=== PATIENT | female | born 1940 | race Two or more races ===

== ENCOUNTER 2021-03-19 11:12 | Inpatient (IN) | payer MEDICARE, OTHER ==
[~2021-03-19] VITALS: Ht 152.4 cm; Wt 75.6 kg
[2021-03-19] MEDS ORDERED: DexAMETHasone SOD PHOS 10MG/1ML VIAL INJ IV ONE (12:30)
[2021-03-19 12:37] LABS: Basophils # (auto) 0.2 10 ^3/uL (0-0.2); Basophils % (auto) 1.6 % (0.0-2.0); Eosinophils # (auto) 0 10 ^3/uL (0-0.8); Hemoglobin 12.4 g/dL (12.2-16.2); Lymphocytes # (auto) 0.5 10 ^3/uL (0.4-5.4); Lymphocytes % (auto) 3.2 % (10.0-50.0); Mean Corpuscular Hemoglobin 27.1 pg (28.0-32.0); Mean Corpuscular Hgb Conc. 32.7 g/dL (32.0-36.0); Mean Corpuscular Volume 82.8 fL (80.0-100.0); Monocytes % (auto) 6.5 % (0.0-12.0); Neutrophils # (auto) 13.3 10 ^3/uL (1.6-8.6); Neutrophils % (auto) 88.7 % (37.0-80.0); Nucleated Red Blood Cells % 0.1 %; Red Blood Cells 4.59 10^6/uL (4.0-5.20)
[2021-03-19 12:46] LABS: Albumin 2.4 g/dL (3.4-5.0); BUN/Creatinine Ratio 11.8; Bilirubin, Total 1.3 mg/dL (0.2-1.0); Calcium 8.6 mg/dL (8.5-10.1)
[2021-03-19 12:47] LABS: Lactic Acid w/Reflex 16.2 mmol/L (0.4-2.0)
[2021-03-19] MEDS ORDERED: LACTATED RINGER'S 1,000 ML IV ONE ×2 (13:15→18:00)
[2021-03-19] MEDS ORDERED: ASPirin 81 mg TAB PO ONE (13:15)
[2021-03-19] MEDS ORDERED: HEPARIN SODIUM (PORCINE) 5000 UNITS/ML 1ML VIAL IV ONE (13:15)
[2021-03-19] MEDS ORDERED: CLOPIDOGREL BISULFATE 75 MG TAB PO ONE (13:15)
[2021-03-19] MEDS: ALBUTEROL SULF HFA 90MCG INH 200DOSE IN PRN ×2 (14:20→19:30)
[2021-03-19] MEDS ORDERED: DEXTROSE (50%) 50ML SYRG IV PRN ×3 (17:15→21:45)
[2021-03-19] MEDS ORDERED: InsuLIN R (HUMAN) 100 UNITS in SODIUM CHL 0.9% 99 ML IV SCH (17:15)
[2021-03-19] MEDS ORDERED: BUDESONIDE (INHALATION) 180 MCG IH IN SCH (18:00)
[2021-03-19] MEDS ORDERED: ACCU-CHEK COMFORT CURVE STRIP VI SCH ×2 (18:00→22:00)
[2021-03-19] MEDS ORDERED: D5W/SOD CHLO 0.9% 1,000 ML IV ONE (18:45)
[2021-03-19] MEDS ORDERED: FUROSEMIDE 20 MG/2 ML VIAL IV ONE (19:30)
[2021-03-19] MEDS ORDERED: ENOXAPARIN SOD 100 MG/1 ML SYRINGE SC ONE (19:30)
[2021-03-19] MEDS ORDERED: ALBUMIN 25% 100 ML IV ONE (19:30)
[2021-03-19] MEDS ORDERED: ALBUTEROL SULF HFA 90MCG INH 200DOSE IN PRN (19:30)
[2021-03-19] MEDS ORDERED: REMDESIVIR PER PHARMACY 0 ML IV SCH (19:30)
[2021-03-19] MEDS ORDERED: ACETAMINOPHEN 500 MG TAB PO PRN (19:30)
[2021-03-19] MEDS ORDERED: FAMOTIDINE (10MG/ML) 2ML VL IV ONE (19:30)
[2021-03-19 19:45] VITALS: BP 122/80
[2021-03-19] MEDS ORDERED: METOPROLOL TARTRATE 1MG/1ML-5ML VIAL IV ONE (19:45)
[2021-03-19] MEDS: ALBUMIN 25% 100 ML IV SCH (20:40)
[2021-03-19] MEDS ORDERED: REMDESIVIR 200 MG in NS 210ml LOADING DOSE ADULT IV ONE (21:00)
[2021-03-19] MEDS ORDERED: MORPHINE SULFATE INJECTION 2 MG/ML SYRG IV PRN (21:45)
[2021-03-19] MEDS ORDERED: NITROGLYCERIN 0.4 MG SL TAB SL PRN (21:45)
[2021-03-19] MEDS ORDERED: InsuLIN REG 1unit/0.01ml Soln (100units/ml) SC SCH (22:00)
[2021-03-19] MEDS: BUDESONIDE (INHALATION) 180 MCG IH IN SCH (22:00)
[2021-03-19 22:10] LABS: Eosinophils # (auto) 0 10 ^3/uL (0-0.8); Hemoglobin 11.6 g/dL (12.2-16.2); Lymphocytes # (auto) 0.4 10 ^3/uL (0.4-5.4); Nucleated Red Blood Cells % 0.1 %; White Blood Cell 14.6 10^3/uL (4.4-10.8)
[2021-03-19 22:15] LABS: Basophils # (auto) 0.2 10 ^3/uL (0-0.2); Basophils % (auto) 1.1 % (0.0-2.0); Hematocrit 33.8 % (36.0-46.0); Mean Corpuscular Hemoglobin 26.9 pg (28.0-32.0); Mean Corpuscular Hgb Conc. 34.2 g/dL (32.0-36.0); Mean Corpuscular Volume 78.7 fL (80.0-100.0); Monocytes # (auto) 0.5 10 ^3/uL (0-1.3); Monocytes % (auto) 3.8 % (0.0-12.0); Neutrophils # (auto) 13.4 10 ^3/uL (1.6-8.6); Neutrophils % (auto) 92.1 % (37.0-80.0); Red Cell Distribution Width 14.9 % (11.8-14.3)
[2021-03-19] MEDS: ATORVASTATIN 20 MG TAB PO SCH (22:21)
[2021-03-19 22:30] LABS: Albumin 2.6 g/dL (3.4-5.0); Anion Gap 14 (5-15); Blood Urea Nitrogen 28 mg/dL (7-18); Calcium 8.4 mg/dL (8.5-10.1); Carbon Dioxide 20 mmol/L (21-32); Chloride 96 mmol/L (98-107); Glucose 202 mg/dL (74-106); Magnesium 3.2 mg/dL (1.6-2.6); Potassium 3.9 mmol/L (3.5-5.1); Sodium 130 mmol/L (136-145)
[2021-03-19] MEDS: DOXYCYCLINE 100MG/250ML 250 ML IV SCH (22:30)
[2021-03-19 22:34] LABS: Lactic Acid w/Reflex 3.9 mmol/L (0.4-2.0)
[2021-03-19 22:39] LABS: Alanine Aminotransferase 23 U/L (13-56); Alkaline Phosphatase 109 U/L (45-117); Aspartate Aminotransferase 74 U/L (15-37); BUN/Creatinine Ratio 20.1; Bilirubin, Total 1.6 mg/dL (0.2-1.0); GFR African American 47 mL/min; GFR Non-African American 39 mL/min; Total Protein 6.1 g/dL (6.4-8.2)
[2021-03-19 22:41] LABS: Thyroid Stimulating Hormone 0.38 uIU/mL (0.358-3.74)
[2021-03-19] MEDS: ACCU-CHEK COMFORT CURVE STRIP VI SCH (22:45)
[2021-03-19 23:15] LABS: CRP High Sensitivity > 19.0 mg/dL (< 0.3)
[2021-03-20] VITALS (7 sets, daily range): BP systolic 106–138; BP diastolic 53–77
[2021-03-20] MEDS ORDERED: ACCU-CHEK COMFORT CURVE STRIP VI SCH
[2021-03-20] MEDS ORDERED: METOPROLOL TARTRATE 1MG/1ML-5ML VIAL IV SCH
[2021-03-20] MEDS: ACCU-CHEK COMFORT CURVE STRIP VI SCH ×2 (00:15→01:45)
[2021-03-20] MEDS ORDERED: NITROGLYCERIN 0.4 MG SL TAB SL PRN (01:15)
[2021-03-20] MEDS ORDERED: ONDANSETRON HCL 4 MG/2 ML VIAL IV PRN (01:15)
[2021-03-20] MEDS ORDERED: TEMAZEPAM 15 MG CAP PO PRN (01:15)
[2021-03-20] MEDS ORDERED: DOCUSATE SOD 100 MG CAP PO PRN (01:15)
[2021-03-20] MEDS ORDERED: MORPHINE SULFATE INJECTION 2 MG/ML SYRG IV PRN ×2 (01:15)
[2021-03-20] MEDS ORDERED: HYDROcodone-ACET 5/325MG TAB PO PRN (01:15)
[2021-03-20] MEDS ORDERED: ALUM & MAG HYDROX-SIMETH LIQ(MAALOX) 30 ML PO PRN (01:15)
[2021-03-20 03:42] LABS: Cholesterol 69 mg/dL (< 200)
[2021-03-20 03:45] LABS: HDL Cholesterol 32 mg/dL (40-59); LDL Cholesterol 37 mg/dL (< 100); Triglycerides 39 mg/dL (< 150)
[2021-03-20] MEDS: ALBUMIN 25% 100 ML IV SCH ×2 (03:53→12:07)
[2021-03-20] MEDS ORDERED: SUCCINYLCHOLINE CHLORIDE 20 MG/ML 10ML VIAL IV ONE ×2 (03:55→04:45)
[2021-03-20] MEDS ORDERED: ETOMIDATE (2MG/ML) 20ML VIAL IV ONE ×2 (03:55→04:45)
[2021-03-20] MEDS ORDERED: MIDAZOLAM DRIP 50 mg/50mL 50 ML IV ONE (03:59)
[2021-03-20] MEDS ORDERED: PROPOFOL 100 ML IV ONE (04:25)
[2021-03-20] MEDS: PROPOFOL 100 ML IV SCH (04:44)
[2021-03-20] MEDS: MIDAZOLAM DRIP 50 mg/50mL 50 ML IV SCH (04:44)
[2021-03-20] MEDS: NOREPINEPHRINE 8 MG/250ML KIT 250 ML IV SCH (05:43)
[2021-03-20] MEDS: FUROSEMIDE 20 MG/2 ML VIAL IV SCH ×2 (06:00→18:50)
[2021-03-20] MEDS: InsuLIN REG 1unit/0.01ml Soln (100units/ml) SC SCH ×4 (06:22→18:00)
[2021-03-20] MEDS ORDERED: InsuLIN REG 1unit/0.01ml Soln (100units/ml) SC SCH (07:00)
[2021-03-20 07:33] LABS: Potassium 4.2 mmol/L (3.5-5.1)
[2021-03-20 07:50] LABS: Albumin 3.1 g/dL (3.4-5.0); BUN/Creatinine Ratio 17.3; Bilirubin, Total 4.6 mg/dL (0.2-1.0); Calcium 8.4 mg/dL (8.5-10.1); Magnesium 3.2 mg/dL (1.6-2.6); Phosphorus 4.3 mg/dL (2.5-4.90); Total Protein 6.8 g/dL (6.4-8.2)
[2021-03-20 07:54] LABS: Hematocrit 34.9 % (36.0-46.0); Hemoglobin 11.6 g/dL (12.2-16.2); Mean Corpuscular Hemoglobin 26.9 pg (28.0-32.0); Mean Corpuscular Hgb Conc. 33.3 g/dL (32.0-36.0); Mean Corpuscular Volume 80.7 fL (80.0-100.0); Red Blood Cells 4.33 10^6/uL (4.0-5.20); Red Cell Distribution Width 15.3 % (11.8-14.3); White Blood Cell 24.1 10^3/uL (4.4-10.8)
[2021-03-20 08:10] LABS: Basophils % (manual) 0 (0.0-2.0); Blast Cells 0; Eosinophils % (manual) 0 (0-7); Metamyelocytes % 0; Myelocytes % 0; Promyelocytes % 0; Reactive Lymphocytes 0
[2021-03-20 08:58] LABS: Band Neutrophils % (manual) 11; Lymphocytes % (manual) 3 (10.0-50.0); Monocytes % (manual) 9 (0-12)
[2021-03-20] MEDS: DOXYCYCLINE 100MG/250ML 250 ML IV SCH ×2 (10:45→22:28)
[2021-03-20] MEDS: DexAMETHasone SOD PHOS 10MG/1ML VIAL INJ IV SCH (10:45)
[2021-03-20] MEDS: ZINC SULFATE 220mg CAP or TAB PO SCH (10:46)
[2021-03-20] MEDS: CHOLECALCIFEROL (VITD3) 2,000 UNIT CAP/TAB PO SCH (10:46)
[2021-03-20] MEDS: ASPirin 81 mg TAB PO SCH (10:46)
[2021-03-20] MEDS: IVERMECTIN 3 MG TAB PO SCH (10:46)
[2021-03-20] MEDS: ASCORBIC ACID 1,000 MG TAB PO SCH (10:46)
[2021-03-20] MEDS ORDERED: REMDESIVIR 100mg 100 MG in SODIUM CHL 0.9% 230 ML IV SCH (15:00)
[2021-03-20] MEDS: BUDESONIDE (INHALATION) 180 MCG IH IN SCH (16:14)
[2021-03-20] MEDS: ALBUTEROL SULF 2.5 MG/0.5ML(0.5%) NEB SOLN NEB PRN (21:48)
[2021-03-20] MEDS: BUDESONIDE (INHALATION) 0.5 MG/2 ML NEB NEB SCH (21:48)
[2021-03-20] MEDS: ATORVASTATIN 20 MG TAB PO SCH (22:28)
[2021-03-20] MEDS: ENOXAPARIN SOD 60 MG/0.6 ML SYRINGE SC SCH (22:28)
[2021-03-21] MEDS: InsuLIN REG 1unit/0.01ml Soln (100units/ml) SC SCH ×4 (00:26→18:24)
[2021-03-21 02:13] VITALS: BP 120/56
[2021-03-21] MEDS: MIDAZOLAM DRIP 50 mg/50mL 50 ML IV SCH (04:42)
[2021-03-21] MEDS: PROPOFOL 100 ML IV SCH (04:43)
[2021-03-21] MEDS: FUROSEMIDE 20 MG/2 ML VIAL IV SCH ×2 (05:33→18:15)
[2021-03-21] MEDS: NOREPINEPHRINE 8 MG/250ML KIT 250 ML IV SCH (05:33)
[2021-03-21 07:04] VITALS: BP 114/53
[2021-03-21 08:41] LABS: Basophils # (auto) 0.1 10 ^3/uL (0-0.2); Basophils % (auto) 0.4 % (0.0-2.0); Eosinophils # (auto) 0 10 ^3/uL (0-0.8); Eosinophils % (auto) 0.1 % (0.0-7.0); Hematocrit 36.2 % (36.0-46.0); Hemoglobin 12.2 g/dL (12.2-16.2); Lymphocytes # (auto) 0.4 10 ^3/uL (0.4-5.4); Lymphocytes % (auto) 1.7 % (10.0-50.0); Mean Corpuscular Hemoglobin 27.1 pg (28.0-32.0); Mean Corpuscular Hgb Conc. 33.7 g/dL (32.0-36.0); Mean Corpuscular Volume 80.3 fL (80.0-100.0); Monocytes # (auto) 1.5 10 ^3/uL (0-1.3); Monocytes % (auto) 6.1 % (0.0-12.0); Neutrophils # (auto) 21.9 10 ^3/uL (1.6-8.6); Neutrophils % (auto) 91.7 % (37.0-80.0); Nucleated Red Blood Cells % 0.1 %; Red Blood Cells 4.51 10^6/uL (4.0-5.20); Red Cell Distribution Width 16.2 % (11.8-14.3)
[2021-03-21 09:45] LABS: Albumin 2.9 g/dL (3.4-5.0); Calcium 8.1 mg/dL (8.5-10.1); Magnesium 3.3 mg/dL (1.6-2.6); Potassium 4.4 mmol/L (3.5-5.1)
[2021-03-21 09:48] LABS: BUN/Creatinine Ratio 17.1; Bilirubin, Total 2.6 mg/dL (0.2-1.0); Total Protein 6.2 g/dL (6.4-8.2)
[2021-03-21] MEDS: FAMOTIDINE (10MG/ML) 2ML VL IV SCH (10:36)
[2021-03-21] MEDS: DexAMETHasone SOD PHOS 10MG/1ML VIAL INJ IV SCH (10:36)
[2021-03-21 10:45] VITALS: BP 127/60
[2021-03-21] MEDS: ZINC SULFATE 220mg CAP or TAB PO SCH (11:20)
[2021-03-21] MEDS: ASPirin 81 mg TAB PO SCH (11:20)
[2021-03-21] MEDS: IVERMECTIN 3 MG TAB PO SCH (11:20)
[2021-03-21] MEDS: ASCORBIC ACID 1,000 MG TAB PO SCH (11:21)
[2021-03-21] MEDS: CHOLECALCIFEROL (VITD3) 2,000 UNIT CAP/TAB PO SCH (11:21)
[2021-03-21] MEDS: DOXYCYCLINE 100MG/250ML 250 ML IV SCH ×2 (11:32→22:27)
[2021-03-21] MEDS: BUDESONIDE (INHALATION) 0.5 MG/2 ML NEB NEB SCH ×2 (13:55→19:13)
[2021-03-21 14:00] VITALS: BP 115/58
[2021-03-21] MEDS: ALBUTEROL SULF 2.5 MG/0.5ML(0.5%) NEB SOLN NEB PRN ×2 (14:06→19:13)
[2021-03-21] MEDS: SODIUM CHLORIDE 0.9% 1,000 ML IV SCH (14:26)
[2021-03-21 15:26] LABS: Urine Blood 3+ /uL (Negative); Urine Specific Gravity 1.014 (1.001-1.035)
[2021-03-21 18:27] VITALS: BP 125/50
[2021-03-21] MEDS: ATORVASTATIN 20 MG TAB PO SCH (22:00)
[2021-03-21] MEDS: ENOXAPARIN SOD 60 MG/0.6 ML SYRINGE SC SCH (22:30)
[2021-03-22 00:16] VITALS: BP 122/60
[2021-03-22] MEDS: SODIUM CHLORIDE 0.9% 1,000 ML IV SCH (03:28)
[2021-03-22] MEDS: PROPOFOL 100 ML IV SCH (04:35)
[2021-03-22] MEDS: MIDAZOLAM DRIP 50 mg/50mL 50 ML IV SCH (04:36)
[2021-03-22] MEDS: NOREPINEPHRINE 8 MG/250ML KIT 250 ML IV SCH (05:30)
[2021-03-22 06:10] VITALS: BP 127/61
[2021-03-22] MEDS: FUROSEMIDE 20 MG/2 ML VIAL IV SCH (06:28)
[2021-03-22] MEDS: InsuLIN REG 1unit/0.01ml Soln (100units/ml) SC SCH ×4 (06:35→17:53)
[2021-03-22 08:25] LABS: Eosinophils # (auto) 0 10 ^3/uL (0-0.8); Lymphocytes # (auto) 0.3 10 ^3/uL (0.4-5.4); Nucleated Red Blood Cells % 0.1 %
[2021-03-22 08:27] LABS: Basophils # (auto) 0.1 10 ^3/uL (0-0.2); Basophils % (auto) 0.7 % (0.0-2.0); Hematocrit 30.2 % (36.0-46.0); Hemoglobin 10.1 g/dL (12.2-16.2); Lymphocytes % (auto) 1.4 % (10.0-50.0); Mean Corpuscular Hemoglobin 26.5 pg (28.0-32.0); Mean Corpuscular Hgb Conc. 33.6 g/dL (32.0-36.0); Monocytes # (auto) 0.8 10 ^3/uL (0-1.3); Neutrophils # (auto) 17.9 10 ^3/uL (1.6-8.6); Neutrophils % (auto) 93.9 % (37.0-80.0); Red Blood Cells 3.82 10^6/uL (4.0-5.20); Red Cell Distribution Width 16.2 % (11.8-14.3)
[2021-03-22 08:41] LABS: Albumin 2.5 g/dL (3.4-5.0); Calcium 7.7 mg/dL (8.5-10.1); Magnesium 2.8 mg/dL (1.6-2.6); Potassium 4.4 mmol/L (3.5-5.1)
[2021-03-22 08:45] LABS: BUN/Creatinine Ratio 17.6; Bilirubin, Total 1.6 mg/dL (0.2-1.0); Total Protein 5.8 g/dL (6.4-8.2)
[2021-03-22] MEDS: IVERMECTIN 3 MG TAB PO SCH (10:00)
[2021-03-22] MEDS: CHOLECALCIFEROL (VITD3) 2,000 UNIT CAP/TAB PO SCH (10:00)
[2021-03-22] MEDS: ASPirin 81 mg TAB PO SCH (10:00)
[2021-03-22] MEDS: ASCORBIC ACID 1,000 MG TAB PO SCH (10:00)
[2021-03-22] MEDS: ZINC SULFATE 220mg CAP or TAB PO SCH (10:00)
[2021-03-22] MEDS: BUDESONIDE (INHALATION) 0.5 MG/2 ML NEB NEB SCH ×2 (10:06→22:00)
[2021-03-22] MEDS: ALBUTEROL SULF 2.5 MG/0.5ML(0.5%) NEB SOLN NEB PRN (10:06)
[2021-03-22] MEDS: DexAMETHasone SOD PHOS 10MG/1ML VIAL INJ IV SCH (10:20)
[2021-03-22 10:30] VITALS: BP 99/54
[2021-03-22] MEDS: DOXYCYCLINE 100MG/250ML 250 ML IV SCH (10:48)
[2021-03-22 16:00] VITALS: BP 99/56
[2021-03-22 17:30] VITALS: BP 106/56
[2021-03-22 22:25] VITALS: BP 108/60
[2021-03-22] MEDS: BUMETANIDE 2.5mg/10ml (0.25 mg/ml) INJ IV SCH (22:30)
[2021-03-22] MEDS: ENOXAPARIN SOD 60 MG/0.6 ML SYRINGE SC SCH (22:30)
[2021-03-22] MEDS: ATORVASTATIN 20 MG TAB PO SCH (23:29)
[2021-03-23] MEDS: PROPOFOL 100 ML IV SCH
[2021-03-23] MEDS: DOXYCYCLINE 100MG/250ML 250 ML IV SCH ×3 (00:08→22:45)
[2021-03-23] MEDS: InsuLIN REG 1unit/0.01ml Soln (100units/ml) SC SCH ×4 (00:33→22:58)
[2021-03-23 02:05] VITALS: BP 116/58
[2021-03-23] MEDS: MIDAZOLAM DRIP 50 mg/50mL 50 ML IV SCH (04:15)
[2021-03-23 05:11] LABS: Basophils # (auto) 0.1 10 ^3/uL (0-0.2); Eosinophils # (auto) 0.4 10 ^3/uL (0-0.8); Red Blood Cells 3.72 10^6/uL (4.0-5.20); White Blood Cell 18.8 10^3/uL (4.4-10.8)
[2021-03-23 05:13] LABS: Basophils % (auto) 0.6 % (0.0-2.0); Eosinophils % (auto) 2.2 % (0.0-7.0); Hematocrit 29.1 % (36.0-46.0); Hemoglobin 10.1 g/dL (12.2-16.2); Lymphocytes # (auto) 0.4 10 ^3/uL (0.4-5.4); Lymphocytes % (auto) 1.9 % (10.0-50.0); Mean Corpuscular Hemoglobin 27.1 pg (28.0-32.0); Mean Corpuscular Hgb Conc. 34.6 g/dL (32.0-36.0); Mean Corpuscular Volume 78.2 fL (80.0-100.0); Monocytes # (auto) 0.7 10 ^3/uL (0-1.3); Monocytes % (auto) 3.5 % (0.0-12.0); Neutrophils # (auto) 17.2 10 ^3/uL (1.6-8.6); Neutrophils % (auto) 91.8 % (37.0-80.0); Nucleated Red Blood Cells % 0.1 %; Red Cell Distribution Width 15.8 % (11.8-14.3)
[2021-03-23 07:28] VITALS: BP 120/55
[2021-03-23] MEDS: NOREPINEPHRINE 8 MG/250ML KIT 250 ML IV SCH (07:45)
[2021-03-23] MEDS: ASPirin 81 mg TAB PO SCH (09:06)
[2021-03-23] MEDS: IVERMECTIN 3 MG TAB PO SCH (09:07)
[2021-03-23] MEDS: ASCORBIC ACID 1,000 MG TAB PO SCH (09:07)
[2021-03-23] MEDS: CHOLECALCIFEROL (VITD3) 2,000 UNIT CAP/TAB PO SCH (09:07)
[2021-03-23] MEDS: ZINC SULFATE 220mg CAP or TAB PO SCH (09:07)
[2021-03-23] MEDS: DexAMETHasone SOD PHOS 10MG/1ML VIAL INJ IV SCH (09:52)
[2021-03-23] MEDS: BUMETANIDE 2.5mg/10ml (0.25 mg/ml) INJ IV SCH ×2 (09:52→23:06)
[2021-03-23] MEDS: FAMOTIDINE (10MG/ML) 2ML VL IV SCH (09:52)
[2021-03-23] MEDS ORDERED: HEPARIN SODIUM (PORCINE) 5000 UNITS/ML 1ML VIAL ONE (12:19)
[2021-03-23 12:41] VITALS: BP 124/69
[2021-03-23] MEDS ORDERED: HEPARIN 1,000 UNITS/ml 1ML VIAL IV ONE (13:30)
[2021-03-23] MEDS ORDERED: SODIUM CHL 0.9% 1000 ML BAG XX ONE (15:30)
[2021-03-23 18:15] VITALS: BP 119/67
[2021-03-23] MEDS: BUDESONIDE (INHALATION) 0.5 MG/2 ML NEB NEB SCH (19:11)
[2021-03-23] MEDS: ALBUTEROL SULF 2.5 MG/0.5ML(0.5%) NEB SOLN NEB PRN (19:12)
[2021-03-23] MEDS ORDERED: ALBUMIN 25% 100 ML IV ONE (19:15)
[2021-03-23 22:45] VITALS: BP 131/67
[2021-03-23] MEDS: ATORVASTATIN 20 MG TAB PO SCH ×2 (23:06→23:24)
[2021-03-23] MEDS: ENOXAPARIN SOD 60 MG/0.6 ML SYRINGE SC SCH (23:06)
[2021-03-24] MEDS: PROPOFOL 100 ML IV SCH ×2 (01:05→04:30)
[2021-03-24 02:14] LABS: Albumin 3.5 g/dL (3.4-5.0); BUN/Creatinine Ratio 16.1; Calcium 8.3 mg/dL (8.5-10.1); Potassium 4.6 mmol/L (3.5-5.1)
[2021-03-24 02:16] LABS: Bilirubin, Total 1.7 mg/dL (0.2-1.0); Total Protein 6.8 g/dL (6.4-8.2)
[2021-03-24 02:50] VITALS: BP 132/64
[2021-03-24] MEDS: MIDAZOLAM DRIP 50 mg/50mL 50 ML IV SCH (04:22)
[2021-03-24] MEDS: NOREPINEPHRINE 8 MG/250ML KIT 250 ML IV SCH ×2 (05:30→23:45)
[2021-03-24 06:04] VITALS: BP 140/69
[2021-03-24] MEDS: InsuLIN REG 1unit/0.01ml Soln (100units/ml) SC SCH ×4 (07:00→17:51)
[2021-03-24] MEDS: BUDESONIDE (INHALATION) 0.5 MG/2 ML NEB NEB SCH ×2 (08:46→17:37)
[2021-03-24] MEDS: ALBUTEROL SULF 2.5 MG/0.5ML(0.5%) NEB SOLN NEB PRN ×2 (08:46→17:37)
[2021-03-24 08:53] LABS: Basophils # (auto) 0.2 10 ^3/uL (0-0.2); Basophils % (auto) 1.1 % (0.0-2.0); Eosinophils # (auto) 0 10 ^3/uL (0-0.8); Hematocrit 29.8 % (36.0-46.0); Lymphocytes # (auto) 0.3 10 ^3/uL (0.4-5.4); Lymphocytes % (auto) 1.8 % (10.0-50.0); Mean Corpuscular Hemoglobin 26.1 pg (28.0-32.0); Mean Corpuscular Hgb Conc. 33.4 g/dL (32.0-36.0); Mean Corpuscular Volume 78.2 fL (80.0-100.0); Monocytes # (auto) 1.3 10 ^3/uL (0-1.3); Neutrophils # (auto) 14.4 10 ^3/uL (1.6-8.6); Neutrophils % (auto) 89.1 % (37.0-80.0); Nucleated Red Blood Cells % 0.3 %; Red Blood Cells 3.82 10^6/uL (4.0-5.20); Red Cell Distribution Width 15.4 % (11.8-14.3); White Blood Cell 16.2 10^3/uL (4.4-10.8)
[2021-03-24 09:01] LABS: Calcium 8.3 mg/dL (8.5-10.1); Potassium 4.6 mmol/L (3.5-5.1)
[2021-03-24 09:53] VITALS: BP 142/75
[2021-03-24] MEDS: ASCORBIC ACID 1,000 MG TAB PO SCH (10:00)
[2021-03-24] MEDS: ASPirin 81 mg TAB PO SCH (10:00)
[2021-03-24] MEDS: IVERMECTIN 3 MG TAB PO SCH (10:00)
[2021-03-24] MEDS: CHOLECALCIFEROL (VITD3) 2,000 UNIT CAP/TAB PO SCH (10:00)
[2021-03-24] MEDS: ZINC SULFATE 220mg CAP or TAB PO SCH (10:00)
[2021-03-24] MEDS: BUMETANIDE 2.5mg/10ml (0.25 mg/ml) INJ IV SCH ×2 (10:37→22:31)
[2021-03-24] MEDS: DOXYCYCLINE 100MG/250ML 250 ML IV SCH (10:38)
[2021-03-24] MEDS: DexAMETHasone SOD PHOS 10MG/1ML VIAL INJ IV SCH (10:38)
[2021-03-24 13:57] VITALS: BP 133/62
[2021-03-24 17:37] VITALS: BP 124/63
[2021-03-24 21:55] VITALS: BP 133/62
[2021-03-24] MEDS: ENOXAPARIN SOD 60 MG/0.6 ML SYRINGE SC SCH (22:48)
[2021-03-24] MEDS: ATORVASTATIN 20 MG TAB PO SCH (22:48)
[2021-03-24] MEDS ORDERED: TEMAZEPAM 15 MG CAP PO PRN (23:45)
[2021-03-24] MEDS ORDERED: NITROGLYCERIN 0.4 MG SL TAB SL PRN ×2 (23:45)
[2021-03-24] MEDS ORDERED: MIDAZOLAM DRIP 50 mg/50mL 50 ML IV SCH (23:45)
[2021-03-24] MEDS ORDERED: ONDANSETRON HCL 4 MG/2 ML VIAL IV PRN (23:45)
[2021-03-24] MEDS ORDERED: HYDROcodone-ACET 5/325MG TAB PO PRN (23:45)
[2021-03-24] MEDS ORDERED: MORPHINE SULFATE INJECTION 2 MG/ML SYRG IV PRN ×3 (23:45)
[2021-03-24] MEDS ORDERED: DEXTROSE (50%) 50ML SYRG IV PRN (23:45)
[2021-03-24] MEDS ORDERED: ACETAMINOPHEN 500 MG TAB PO PRN (23:45)
[2021-03-24] MEDS ORDERED: DOCUSATE SOD 100 MG CAP PO PRN (23:45)
[2021-03-24] MEDS ORDERED: ALUM & MAG HYDROX-SIMETH LIQ(MAALOX) 30 ML PO PRN (23:45)
[2021-03-25] VITALS (68 sets, daily range): BP systolic 97–159; BP diastolic 53–75
[2021-03-25 05:07] LABS: Eosinophils # (auto) 0 10 ^3/uL (0-0.8); Lymphocytes # (auto) 0.2 10 ^3/uL (0.4-5.4)
[2021-03-25 05:10] LABS: Basophils # (auto) 0 10 ^3/uL (0-0.2); Basophils % (auto) 0.2 % (0.0-2.0); Hematocrit 26.5 % (36.0-46.0); Lymphocytes % (auto) 1.9 % (10.0-50.0); Mean Corpuscular Hemoglobin 26.6 pg (28.0-32.0); Mean Corpuscular Hgb Conc. 33.9 g/dL (32.0-36.0); Mean Corpuscular Volume 78.7 fL (80.0-100.0); Monocytes # (auto) 0.7 10 ^3/uL (0-1.3); Monocytes % (auto) 5.9 % (0.0-12.0); Neutrophils # (auto) 11.1 10 ^3/uL (1.6-8.6); Nucleated Red Blood Cells % 0.2 %; Red Blood Cells 3.37 10^6/uL (4.0-5.20); Red Cell Distribution Width 15.2 % (11.8-14.3)
[2021-03-25 05:36] LABS: BUN/Creatinine Ratio 18.8; Magnesium 2.9 mg/dL (1.6-2.6); Potassium 5.3 mmol/L (3.5-5.1)
[2021-03-25] MEDS: InsuLIN REG 1unit/0.01ml Soln (100units/ml) SC SCH ×4 (06:00→18:00)
[2021-03-25] MEDS: ALBUTEROL SULF 2.5 MG/0.5ML(0.5%) NEB SOLN NEB PRN (06:04)
[2021-03-25] MEDS ORDERED: SODIUM CHL 0.9% 1000 ML BAG XX ONE ×3 (07:00→13:45)
[2021-03-25] MEDS: BUDESONIDE (INHALATION) 0.5 MG/2 ML NEB NEB SCH ×2 (09:57→22:05)
[2021-03-25] MEDS: ASCORBIC ACID 1,000 MG TAB PO SCH (10:00)
[2021-03-25] MEDS: ASPirin 81 mg TAB PO SCH (10:00)
[2021-03-25] MEDS: ZINC SULFATE 220mg CAP or TAB PO SCH (10:00)
[2021-03-25] MEDS: BUMETANIDE 2.5mg/10ml (0.25 mg/ml) INJ IV SCH ×2 (13:47→22:04)
[2021-03-25] MEDS: FAMOTIDINE (10MG/ML) 2ML VL IV SCH (13:48)
[2021-03-25] MEDS: DexAMETHasone SOD PHOS 10MG/1ML VIAL INJ IV SCH (13:48)
[2021-03-25] MEDS: CHOLECALCIFEROL (VITD3) 2,000 UNIT CAP/TAB PO SCH (13:49)
[2021-03-25] MEDS ORDERED: TPN PER PHARMACY 0 ML IV SCH (14:30)
[2021-03-25] MEDS: ACCU-CHEK COMFORT CURVE STRIP VI SCH (18:16)
[2021-03-25] MEDS ORDERED: AMINO ACID INFUSION IN D10W 1,000 ML IV NR (20:00)
[2021-03-25] MEDS: ATORVASTATIN 20 MG TAB PO SCH ×2 (22:00→22:05)
[2021-03-25] MEDS ORDERED: ENOXAPARIN SOD 60 MG/0.6 ML SYRINGE SC SCH (22:00)
[2021-03-25] MEDS: ENOXAPARIN SOD 40 MG/0.4 ML SYRINGE SC SCH (22:05)
[2021-03-25] MEDS: NOREPINEPHRINE 8 MG/250ML KIT 250 ML IV SCH (23:45)
[2021-03-25] MEDS: PROPOFOL 100 ML IV SCH (23:45)
[2021-03-26] VITALS (99 sets, daily range): BP systolic 87–208; BP diastolic 45–82
[2021-03-26 02:50] LABS: Basophils # (auto) 0 10 ^3/uL (0-0.2); Eosinophils # (auto) 0.1 10 ^3/uL (0-0.8); Hematocrit 27.7 % (36.0-46.0); Hemoglobin 9.2 g/dL (12.2-16.2); Lymphocytes # (auto) 0.3 10 ^3/uL (0.4-5.4); Lymphocytes % (auto) 2.1 % (10.0-50.0); Mean Corpuscular Hemoglobin 25.7 pg (28.0-32.0); Mean Corpuscular Hgb Conc. 33.2 g/dL (32.0-36.0); Mean Corpuscular Volume 77.4 fL (80.0-100.0); Monocytes # (auto) 0.2 10 ^3/uL (0-1.3); Monocytes % (auto) 1.5 % (0.0-12.0); Neutrophils # (auto) 13.6 10 ^3/uL (1.6-8.6); Neutrophils % (auto) 95.4 % (37.0-80.0); Nucleated Red Blood Cells % 0.3 %; Red Blood Cells 3.58 10^6/uL (4.0-5.20); Red Cell Distribution Width 15.4 % (11.8-14.3); White Blood Cell 14.2 10^3/uL (4.4-10.8)
[2021-03-26 03:02] LABS: Albumin 2.7 g/dL (3.4-5.0); BUN/Creatinine Ratio 18.1; Bilirubin, Total 1.1 mg/dL (0.2-1.0); Calcium 8.1 mg/dL (8.5-10.1); Magnesium 2.6 mg/dL (1.6-2.6); Phosphorus 6.9 mg/dL (2.5-4.90); Total Protein 5.8 g/dL (6.4-8.2)
[2021-03-26] MEDS: ACCU-CHEK COMFORT CURVE STRIP VI SCH ×4 (05:37→19:24)
[2021-03-26] MEDS: InsuLIN REG 1unit/0.01ml Soln (100units/ml) SC SCH ×4 (05:37→19:23)
[2021-03-26] MEDS: ALBUTEROL SULF 2.5 MG/0.5ML(0.5%) NEB SOLN NEB PRN ×2 (06:13→17:55)
[2021-03-26] MEDS: BUDESONIDE (INHALATION) 0.5 MG/2 ML NEB NEB SCH ×2 (06:14→17:55)
[2021-03-26] MEDS: DexAMETHasone SOD PHOS 10MG/1ML VIAL INJ IV SCH (09:30)
[2021-03-26] MEDS: ZINC SULFATE 220mg CAP or TAB PO SCH (09:30)
[2021-03-26] MEDS: BUMETANIDE 2.5mg/10ml (0.25 mg/ml) INJ IV SCH ×2 (09:30→21:39)
[2021-03-26] MEDS: ASPirin 81 mg TAB PO SCH (09:30)
[2021-03-26] MEDS: CHOLECALCIFEROL (VITD3) 2,000 UNIT CAP/TAB PO SCH (09:30)
[2021-03-26] MEDS: ASCORBIC ACID 1,000 MG TAB PO SCH (09:30)
[2021-03-26 11:02] LABS: Hepatitis A Ab IgM Negative
[2021-03-26 11:12] LABS: Hepatitis B Core IgM Negative
[2021-03-26 11:19] LABS: Hepatitis C Antibody Negative (Negative)
[2021-03-26] MEDS: hydrALAZINE HCL 20 MG/ML VL IV PRN (14:05)
[2021-03-26] MEDS: PROPOFOL 100 ML IV SCH (16:00)
[2021-03-26] MEDS: ENOXAPARIN SOD 40 MG/0.4 ML SYRINGE SC SCH (21:39)
[2021-03-26] MEDS: ATORVASTATIN 20 MG TAB PO SCH (21:39)
[2021-03-27] VITALS (100 sets, daily range): BP systolic 82–172; BP diastolic 41–77
[2021-03-27] MEDS: ACCU-CHEK COMFORT CURVE STRIP VI SCH ×4 (05:37→17:36)
[2021-03-27] MEDS: InsuLIN REG 1unit/0.01ml Soln (100units/ml) SC SCH ×4 (05:37→17:36)
[2021-03-27 05:59] LABS: Basophils # (auto) 0 10 ^3/uL (0-0.2); Eosinophils # (auto) 0 10 ^3/uL (0-0.8); Hemoglobin 10.1 g/dL (12.2-16.2); Mean Corpuscular Hemoglobin 26.4 pg (28.0-32.0); Mean Corpuscular Hgb Conc. 33.7 g/dL (32.0-36.0); White Blood Cell 18.2 10^3/uL (4.4-10.8)
[2021-03-27 06:02] LABS: Basophils % (auto) 0.2 % (0.0-2.0); Hematocrit 29.8 % (36.0-46.0); Lymphocytes # (auto) 0.5 10 ^3/uL (0.4-5.4); Lymphocytes % (auto) 2.5 % (10.0-50.0); Mean Corpuscular Volume 78.4 fL (80.0-100.0); Monocytes # (auto) 0.8 10 ^3/uL (0-1.3); Monocytes % (auto) 4.6 % (0.0-12.0); Neutrophils # (auto) 16.9 10 ^3/uL (1.6-8.6); Neutrophils % (auto) 92.7 % (37.0-80.0); Nucleated Red Blood Cells % 0.1 %; Red Cell Distribution Width 15.9 % (11.8-14.3)
[2021-03-27 06:38] LABS: BUN/Creatinine Ratio 22.2; Calcium 8.4 mg/dL (8.5-10.1); Potassium 5.4 mmol/L (3.5-5.1)
[2021-03-27] MEDS: PROPOFOL 100 ML IV SCH (06:42)
[2021-03-27] MEDS ORDERED: SODIUM CHL 0.9% 1000 ML BAG XX ONE (07:00)
[2021-03-27] MEDS: ZINC SULFATE 220mg CAP or TAB PO SCH (09:25)
[2021-03-27] MEDS: FAMOTIDINE (10MG/ML) 2ML VL IV SCH (09:25)
[2021-03-27] MEDS: ASPirin 81 mg TAB PO SCH (09:25)
[2021-03-27] MEDS: DexAMETHasone SOD PHOS 10MG/1ML VIAL INJ IV SCH (09:25)
[2021-03-27] MEDS: BUMETANIDE 2.5mg/10ml (0.25 mg/ml) INJ IV SCH ×2 (09:25→22:22)
[2021-03-27] MEDS: ASCORBIC ACID 1,000 MG TAB PO SCH (09:26)
[2021-03-27] MEDS: CHOLECALCIFEROL (VITD3) 2,000 UNIT CAP/TAB PO SCH (09:26)
[2021-03-27] MEDS: ENOXAPARIN SOD 40 MG/0.4 ML SYRINGE SC SCH (21:07)
[2021-03-27] MEDS: ATORVASTATIN 20 MG TAB PO SCH (21:07)
[2021-03-27] MEDS: BUDESONIDE (INHALATION) 0.5 MG/2 ML NEB NEB SCH (22:54)
[2021-03-27] MEDS: ALBUTEROL SULF 2.5 MG/0.5ML(0.5%) NEB SOLN NEB PRN (22:55)
[2021-03-27] MEDS: NOREPINEPHRINE 8 MG/250ML KIT 250 ML IV SCH (23:45)
[2021-03-28] VITALS (97 sets, daily range): BP systolic 119–207; BP diastolic 54–92
[2021-03-28] MEDS: BUDESONIDE (INHALATION) 0.5 MG/2 ML NEB NEB SCH ×3 (02:56→21:25)
[2021-03-28 04:21] LABS: Basophils # (auto) 0 10 ^3/uL (0-0.2); Basophils % (auto) 0.2 % (0.0-2.0); Eosinophils # (auto) 0 10 ^3/uL (0-0.8); Eosinophils % (auto) 0.1 % (0.0-7.0); Monocytes # (auto) 0.7 10 ^3/uL (0-1.3); Nucleated Red Blood Cells % 0.1 %; Red Cell Distribution Width 15.3 % (11.8-14.3)
[2021-03-28 04:23] LABS: Hematocrit 31.2 % (36.0-46.0); Hemoglobin 10.7 g/dL (12.2-16.2); Lymphocytes # (auto) 0.4 10 ^3/uL (0.4-5.4); Lymphocytes % (auto) 2.2 % (10.0-50.0); Mean Corpuscular Hemoglobin 26.5 pg (28.0-32.0); Mean Corpuscular Hgb Conc. 34.3 g/dL (32.0-36.0); Mean Corpuscular Volume 77.3 fL (80.0-100.0); Monocytes % (auto) 3.9 % (0.0-12.0); Neutrophils % (auto) 93.6 % (37.0-80.0); Red Blood Cells 4.04 10^6/uL (4.0-5.20); White Blood Cell 17.1 10^3/uL (4.4-10.8)
[2021-03-28 04:34] LABS: Calcium 8.5 mg/dL (8.5-10.1); Potassium 4.8 mmol/L (3.5-5.1)
[2021-03-28 04:36] LABS: BUN/Creatinine Ratio 14.3
[2021-03-28] MEDS: InsuLIN REG 1unit/0.01ml Soln (100units/ml) SC SCH ×4 (06:00→17:35)
[2021-03-28] MEDS: ALBUTEROL SULF 2.5 MG/0.5ML(0.5%) NEB SOLN NEB PRN ×2 (06:05→21:25)
[2021-03-28] MEDS: ACCU-CHEK COMFORT CURVE STRIP VI SCH ×4 (06:08→17:35)
[2021-03-28] MEDS: BUMETANIDE 2.5mg/10ml (0.25 mg/ml) INJ IV SCH ×2 (09:45→21:28)
[2021-03-28] MEDS: DexAMETHasone SOD PHOS 10MG/1ML VIAL INJ IV SCH (09:45)
[2021-03-28] MEDS: ASPirin 81 mg TAB PO SCH (09:46)
[2021-03-28] MEDS: CHOLECALCIFEROL (VITD3) 2,000 UNIT CAP/TAB PO SCH (09:46)
[2021-03-28] MEDS: ZINC SULFATE 220mg CAP or TAB PO SCH (09:46)
[2021-03-28] MEDS: ASCORBIC ACID 1,000 MG TAB PO SCH (09:46)
[2021-03-28] MEDS ORDERED: TPN PER PHARMACY 0 ML IV SCH (12:30)
[2021-03-28 13:33] LABS: Magnesium 2.6 mg/dL (1.6-2.6); Phosphorus 7.4 mg/dL (2.5-4.90)
[2021-03-28 13:38] LABS: Pre Albumin 21.8 mg/dL (20.0-40.0)
[2021-03-28] MEDS: ATORVASTATIN 20 MG TAB PO SCH (19:58)
[2021-03-28] MEDS ORDERED: AMINO ACID INFUSION IN D10W 1,000 ML IV NR (20:00)
[2021-03-28] MEDS: PROPOFOL 100 ML IV SCH (20:15)
[2021-03-28] MEDS: ENOXAPARIN SOD 40 MG/0.4 ML SYRINGE SC SCH (21:27)
[2021-03-28] MEDS: hydrALAZINE HCL 20 MG/ML VL IV PRN (23:06)
[2021-03-28] MEDS: NOREPINEPHRINE 8 MG/250ML KIT 250 ML IV SCH (23:45)
[2021-03-29] VITALS (96 sets, daily range): BP systolic 86–203; BP diastolic 40–91
[2021-03-29] MEDS: ACCU-CHEK COMFORT CURVE STRIP VI SCH ×5 (00:13→23:43)
[2021-03-29] MEDS: InsuLIN REG 1unit/0.01ml Soln (100units/ml) SC SCH ×5 (05:54→23:43)
[2021-03-29 05:55] LABS: Albumin 2.4 g/dL (3.4-5.0); Calcium 8.7 mg/dL (8.5-10.1); Magnesium 3.5 mg/dL (1.6-2.6); Potassium 5.1 mmol/L (3.5-5.1)
[2021-03-29 05:59] LABS: BUN/Creatinine Ratio 22.3; Bilirubin, Total 1.2 mg/dL (0.2-1.0); Phosphorus 8.2 mg/dL (2.5-4.90)
[2021-03-29] MEDS: DexAMETHasone SOD PHOS 10MG/1ML VIAL INJ IV SCH (09:12)
[2021-03-29] MEDS: FAMOTIDINE (10MG/ML) 2ML VL IV SCH (09:12)
[2021-03-29] MEDS: BUMETANIDE 2.5mg/10ml (0.25 mg/ml) INJ IV SCH ×2 (09:12→23:42)
[2021-03-29] MEDS: ASCORBIC ACID 1,000 MG TAB PO SCH (09:12)
[2021-03-29] MEDS: CHOLECALCIFEROL (VITD3) 2,000 UNIT CAP/TAB PO SCH (09:12)
[2021-03-29] MEDS: ASPirin 81 mg TAB PO SCH (09:13)
[2021-03-29] MEDS: ZINC SULFATE 220mg CAP or TAB PO SCH (09:13)
[2021-03-29] MEDS: PROPOFOL 100 ML IV SCH (10:00)
[2021-03-29] MEDS ORDERED: DEXTROSE (50%) 50ML SYRG IV SCH (12:00)
[2021-03-29] MEDS: BUDESONIDE (INHALATION) 0.5 MG/2 ML NEB NEB SCH (19:22)
[2021-03-29] MEDS: ALBUTEROL SULF 2.5 MG/0.5ML(0.5%) NEB SOLN NEB PRN (19:22)
[2021-03-29] MEDS ORDERED: TPN PER PHARMACY IV NR ×5 (20:00)
[2021-03-29] MEDS: ATORVASTATIN 20 MG TAB PO SCH (22:00)
[2021-03-29] MEDS: ENOXAPARIN SOD 40 MG/0.4 ML SYRINGE SC SCH (23:41)
[2021-03-29] MEDS: NOREPINEPHRINE 8 MG/250ML KIT 250 ML IV SCH (23:45)
[2021-03-30] VITALS (59 sets, daily range): BP systolic 76–153; BP diastolic 35–80
[2021-03-30] MEDS: ACCU-CHEK COMFORT CURVE STRIP VI SCH ×3 (06:00→18:00)
[2021-03-30] MEDS: ALBUTEROL SULF 2.5 MG/0.5ML(0.5%) NEB SOLN NEB PRN ×2 (06:35→21:46)
[2021-03-30] MEDS: BUDESONIDE (INHALATION) 0.5 MG/2 ML NEB NEB SCH ×2 (06:35→21:46)
[2021-03-30] MEDS: InsuLIN REG 1unit/0.01ml Soln (100units/ml) SC SCH ×3 (07:00→18:00)
[2021-03-30] MEDS ORDERED: SODIUM CHL 0.9% 1000 ML BAG XX ONE (07:00)
[2021-03-30] MEDS: ZINC SULFATE 220mg CAP or TAB PO SCH (10:00)
[2021-03-30] MEDS: ASPirin 81 mg TAB PO SCH (10:00)
[2021-03-30] MEDS: BUMETANIDE 2.5mg/10ml (0.25 mg/ml) INJ IV SCH ×2 (10:00→21:57)
[2021-03-30] MEDS: CHOLECALCIFEROL (VITD3) 2,000 UNIT CAP/TAB PO SCH (10:00)
[2021-03-30] MEDS: ASCORBIC ACID 1,000 MG TAB PO SCH (10:00)
[2021-03-30 15:14] LABS: Albumin 2.1 g/dL (3.4-5.0); Calcium 8.2 mg/dL (8.5-10.1); Magnesium 3.5 mg/dL (1.6-2.6)
[2021-03-30 15:17] LABS: BUN/Creatinine Ratio 23.3; Bilirubin, Total 0.9 mg/dL (0.2-1.0); Phosphorus 6.5 mg/dL (2.5-4.90); Total Protein 5.8 g/dL (6.4-8.2)
[2021-03-30 15:33] LABS: Potassium 5.6 mmol/L (3.5-5.1)
[2021-03-30] MEDS: PROPOFOL 100 ML IV SCH (16:21)
[2021-03-30] MEDS: DexAMETHasone SOD PHOS 10MG/1ML VIAL INJ IV SCH (17:00)
[2021-03-30] MEDS: TPN PER PHARMACY IV NR ×3 (20:00)
[2021-03-30] MEDS: ENOXAPARIN SOD 40 MG/0.4 ML SYRINGE SC SCH (21:56)
[2021-03-30] MEDS: ATORVASTATIN 20 MG TAB PO SCH (21:56)
[2021-03-30] MEDS: NOREPINEPHRINE 8 MG/250ML KIT 250 ML IV SCH (23:45)
[2021-03-31] VITALS (89 sets, daily range): BP systolic 90–187; BP diastolic 41–75
[2021-03-31] MEDS: ACCU-CHEK COMFORT CURVE STRIP VI SCH ×4 (06:00→18:44)
[2021-03-31] MEDS: InsuLIN REG 1unit/0.01ml Soln (100units/ml) SC SCH ×4 (07:00→18:44)
[2021-03-31] MEDS: ZINC SULFATE 220mg CAP or TAB PO SCH (10:00)
[2021-03-31] MEDS: ASCORBIC ACID 1,000 MG TAB PO SCH (10:00)
[2021-03-31] MEDS: CHOLECALCIFEROL (VITD3) 2,000 UNIT CAP/TAB PO SCH (10:00)
[2021-03-31] MEDS: ASPirin 81 mg TAB PO SCH (10:00)
[2021-03-31] MEDS: ALBUTEROL SULF 2.5 MG/0.5ML(0.5%) NEB SOLN NEB PRN ×2 (10:31→20:14)
[2021-03-31] MEDS: hydrALAZINE HCL 20 MG/ML VL IV PRN (10:31)
[2021-03-31] MEDS: BUDESONIDE (INHALATION) 0.5 MG/2 ML NEB NEB SCH ×2 (10:31→20:14)
[2021-03-31] MEDS: DexAMETHasone SOD PHOS 10MG/1ML VIAL INJ IV SCH (10:32)
[2021-03-31] MEDS: BUMETANIDE 2.5mg/10ml (0.25 mg/ml) INJ IV SCH ×2 (10:32→22:00)
[2021-03-31 11:14] LABS: Hemoglobin 11.9 g/dL (12.2-16.2); Mean Corpuscular Hemoglobin 26.1 pg (28.0-32.0); Mean Corpuscular Hgb Conc. 32.3 g/dL (32.0-36.0); Red Blood Cells 4.56 10^6/uL (4.0-5.20); White Blood Cell 27.7 10^3/uL (4.4-10.8)
[2021-03-31 11:15] LABS: Basophils % (manual) 0 (0.0-2.0); Blast Cells 0; Metamyelocytes % 0; Myelocytes % 0; Promyelocytes % 0; Reactive Lymphocytes 0
[2021-03-31 11:29] LABS: Albumin 2.1 g/dL (3.4-5.0); Calcium 7.4 mg/dL (8.5-10.1); Potassium 5.4 mmol/L (3.5-5.1)
[2021-03-31 11:34] LABS: Bilirubin, Total 0.9 mg/dL (0.2-1.0); Phosphorus 6.4 mg/dL (2.5-4.90); Total Protein 5.9 g/dL (6.4-8.2)
[2021-03-31 11:35] LABS: Band Neutrophils % (manual) 1; Eosinophils % (manual) 1 (0-7); Lymphocytes % (manual) 5 (10.0-50.0); Monocytes % (manual) 2 (0-12)
[2021-03-31] MEDS: FAMOTIDINE (10MG/ML) 2ML VL IV SCH (13:54)
[2021-03-31] MEDS ORDERED: VANCOMYCIN PER PHARMACY 0 MG IV SCH (14:30)
[2021-03-31] MEDS ORDERED: MEROPENEM 1GM IVPB 100 ML IV SCH (14:45)
[2021-03-31] MEDS ORDERED: VANCOMYCIN 1GM/250ML 250 ML IV ONE (15:00)
[2021-03-31] MEDS: PROPOFOL 100 ML IV SCH (17:56)
[2021-03-31] MEDS: MEROPENEM 500MG IVPB 50 ML IV SCH (19:00)
[2021-03-31] MEDS: TPN PER PHARMACY IV NR ×8 (19:50→22:40)
[2021-03-31] MEDS: ATORVASTATIN 20 MG TAB PO SCH (22:00)
[2021-03-31] MEDS: ENOXAPARIN SOD 40 MG/0.4 ML SYRINGE SC SCH (22:00)
[2021-03-31] MEDS: NOREPINEPHRINE 8 MG/250ML KIT 250 ML IV SCH (23:45)
[2021-04-01] VITALS (123 sets, daily range): BP systolic 76–162; BP diastolic 37–72
[2021-04-01] MEDS: InsuLIN REG 1unit/0.01ml Soln (100units/ml) SC SCH ×4 (01:00→18:27)
[2021-04-01] MEDS: MEROPENEM 500MG IVPB 50 ML IV SCH ×2 (04:00→18:25)
[2021-04-01 04:59] LABS: Hemoglobin 9.3 g/dL (12.2-16.2)
[2021-04-01 05:03] LABS: Hematocrit 27.9 % (36.0-46.0); Mean Corpuscular Hemoglobin 26.4 pg (28.0-32.0); Mean Corpuscular Hgb Conc. 33.2 g/dL (32.0-36.0); Mean Corpuscular Volume 79.4 fL (80.0-100.0); Red Blood Cells 3.51 10^6/uL (4.0-5.20); Red Cell Distribution Width 15.7 % (11.8-14.3); White Blood Cell 28.4 10^3/uL (4.4-10.8)
[2021-04-01 05:21] LABS: Basophils % (manual) 0 (0.0-2.0); Blast Cells 0; Eosinophils % (manual) 0 (0-7); Metamyelocytes % 0; Myelocytes % 0; Promyelocytes % 0; Reactive Lymphocytes 0
[2021-04-01 05:23] LABS: Albumin 1.9 g/dL (3.4-5.0); BUN/Creatinine Ratio 27.3; Calcium 8.7 mg/dL (8.5-10.1); Magnesium 2.2 mg/dL (1.6-2.6); Potassium 4.6 mmol/L (3.5-5.1)
[2021-04-01 05:26] LABS: Bilirubin, Total 0.8 mg/dL (0.2-1.0); Phosphorus 5.8 mg/dL (2.5-4.90); Total Protein 5.5 g/dL (6.4-8.2)
[2021-04-01] MEDS: ACCU-CHEK COMFORT CURVE STRIP VI SCH ×4 (06:00→18:27)
[2021-04-01] MEDS: PROPOFOL 100 ML IV SCH ×3 (07:00→23:00)
[2021-04-01] MEDS ORDERED: SODIUM CHL 0.9% 1000 ML BAG XX ONE (07:00)
[2021-04-01 07:13] LABS: Band Neutrophils % (manual) 6; Lymphocytes % (manual) 1 (10.0-50.0); Monocytes % (manual) 4 (0-12)
[2021-04-01] MEDS ORDERED: ALBUMIN 25% 100 ML IV ONE ×2 (07:52→08:00)
[2021-04-01] MEDS: ZINC SULFATE 220mg CAP or TAB PO SCH ×2 (10:00→11:16)
[2021-04-01] MEDS: ASPirin 81 mg TAB PO SCH ×2 (10:00→11:16)
[2021-04-01] MEDS: CHOLECALCIFEROL (VITD3) 2,000 UNIT CAP/TAB PO SCH ×2 (10:00→11:16)
[2021-04-01] MEDS: ASCORBIC ACID 1,000 MG TAB PO SCH ×2 (10:00→11:16)
[2021-04-01] MEDS ORDERED: FAMOTIDINE (10MG/ML) 2ML VL IV ONE (11:02)
[2021-04-01] MEDS: BUMETANIDE 2.5mg/10ml (0.25 mg/ml) INJ IV SCH ×2 (11:09→21:21)
[2021-04-01] MEDS: DexAMETHasone SOD PHOS 10MG/1ML VIAL INJ IV SCH (11:12)
[2021-04-01] MEDS: BUDESONIDE (INHALATION) 0.5 MG/2 ML NEB NEB SCH ×2 (11:17→18:52)
[2021-04-01] MEDS ORDERED: VANCOMYCIN 1GM/250ML 250 ML IV ONE (14:00)
[2021-04-01] MEDS: ALBUTEROL SULF 2.5 MG/0.5ML(0.5%) NEB SOLN NEB PRN (18:52)
[2021-04-01] MEDS: TPN PER PHARMACY IV NR ×5 (19:59)
[2021-04-01] MEDS ORDERED: TPN PER PHARMACY IV NR ×5 (20:00)
[2021-04-01] MEDS: ENOXAPARIN SOD 40 MG/0.4 ML SYRINGE SC SCH (21:22)
[2021-04-01] MEDS: ATORVASTATIN 20 MG TAB PO SCH (21:22)
[2021-04-01] MEDS: NOREPINEPHRINE 8 MG/250ML KIT 250 ML IV SCH (23:45)
[2021-04-02] VITALS (93 sets, daily range): BP systolic 75–146; BP diastolic 32–68
[2021-04-02] MEDS: ACCU-CHEK COMFORT CURVE STRIP VI SCH ×4 (00:01→18:00)
[2021-04-02] MEDS: InsuLIN REG 1unit/0.01ml Soln (100units/ml) SC SCH ×4 (00:02→18:22)
[2021-04-02] MEDS: MEROPENEM 500MG IVPB 50 ML IV SCH ×2 (03:54→17:02)
[2021-04-02 06:02] LABS: BUN/Creatinine Ratio 29.3; Calcium 8.4 mg/dL (8.5-10.1); Potassium 3.9 mmol/L (3.5-5.1)
[2021-04-02 06:03] LABS: Hematocrit 24.8 % (36.0-46.0); Hemoglobin 8.3 g/dL (12.2-16.2); Mean Corpuscular Hemoglobin 26.7 pg (28.0-32.0); Mean Corpuscular Hgb Conc. 33.6 g/dL (32.0-36.0); Mean Corpuscular Volume 79.3 fL (80.0-100.0); Red Blood Cells 3.13 10^6/uL (4.0-5.20); Red Cell Distribution Width 15.9 % (11.8-14.3); White Blood Cell 25.6 10^3/uL (4.4-10.8)
[2021-04-02 06:05] LABS: Bilirubin, Total 0.9 mg/dL (0.2-1.0); Phosphorus 4.5 mg/dL (2.5-4.90); Total Protein 5.2 g/dL (6.4-8.2)
[2021-04-02 06:38] LABS: Basophils % (manual) 0 (0.0-2.0); Blast Cells 0; Eosinophils % (manual) 0 (0-7); Metamyelocytes % 0; Myelocytes % 0; Promyelocytes % 0; Reactive Lymphocytes 0
[2021-04-02] MEDS: ALBUTEROL SULF 2.5 MG/0.5ML(0.5%) NEB SOLN NEB PRN ×2 (06:52→22:26)
[2021-04-02] MEDS: BUDESONIDE (INHALATION) 0.5 MG/2 ML NEB NEB SCH ×2 (06:52→22:26)
[2021-04-02] MEDS: PROPOFOL 100 ML IV SCH ×2 (06:56→14:02)
[2021-04-02] MEDS: ASPirin 81 mg TAB PO SCH (07:29)
[2021-04-02] MEDS: ZINC SULFATE 220mg CAP or TAB PO SCH (07:30)
[2021-04-02] MEDS: ASCORBIC ACID 1,000 MG TAB PO SCH (07:30)
[2021-04-02] MEDS: CHOLECALCIFEROL (VITD3) 2,000 UNIT CAP/TAB PO SCH (07:30)
[2021-04-02] MEDS: BUMETANIDE 2.5mg/10ml (0.25 mg/ml) INJ IV SCH ×2 (07:53→22:30)
[2021-04-02] MEDS: DexAMETHasone SOD PHOS 10MG/1ML VIAL INJ IV SCH (07:53)
[2021-04-02] MEDS: FAMOTIDINE (10MG/ML) 2ML VL IV SCH (07:53)
[2021-04-02 08:25] LABS: Band Neutrophils % (manual) 1; Lymphocytes % (manual) 3 (10.0-50.0); Monocytes % (manual) 3 (0-12)
[2021-04-02] MEDS ORDERED: TPN PER PHARMACY IV NR ×7 (20:00)
[2021-04-02] MEDS: ATORVASTATIN 20 MG TAB PO SCH (22:00)
[2021-04-02] MEDS: ENOXAPARIN SOD 40 MG/0.4 ML SYRINGE SC SCH (22:30)
[2021-04-03] VITALS (98 sets, daily range): BP systolic 85–160; BP diastolic 42–82
[2021-04-03] MEDS: ACCU-CHEK COMFORT CURVE STRIP VI SCH ×4 (00:17→18:00)
[2021-04-03] MEDS ORDERED: SODIUM BICARBONATE 8.4% INJ 50ML SYRINGE ONE (01:24)
[2021-04-03] MEDS: MEROPENEM 500MG IVPB 50 ML IV SCH ×2 (03:22→16:40)
[2021-04-03 06:00] LABS: INR 1.07 (0.9-1.15); Partial Thromboplastin Time 35.7 sec (23.6-33.0)
[2021-04-03] MEDS: InsuLIN REG 1unit/0.01ml Soln (100units/ml) SC SCH ×4 (06:01→18:30)
[2021-04-03 06:08] LABS: Hematocrit 27.1 % (36.0-46.0); Hemoglobin 8.9 g/dL (12.2-16.2); Mean Corpuscular Hemoglobin 26.1 pg (28.0-32.0); Mean Corpuscular Volume 79.2 fL (80.0-100.0); Red Blood Cells 3.41 10^6/uL (4.0-5.20); Red Cell Distribution Width 16.3 % (11.8-14.3); White Blood Cell 29.7 10^3/uL (4.4-10.8)
[2021-04-03 06:28] LABS: Calcium 7.8 mg/dL (8.5-10.1); Magnesium 2.8 mg/dL (1.6-2.6)
[2021-04-03 06:32] LABS: BUN/Creatinine Ratio 29.7; Bilirubin, Total 0.9 mg/dL (0.2-1.0); Pre Albumin 21.3 mg/dL (20.0-40.0); Total Protein 5.4 g/dL (6.4-8.2)
[2021-04-03 06:47] LABS: Basophils % (manual) 0 (0.0-2.0); Blast Cells 0; Eosinophils % (manual) 0 (0-7); Myelocytes % 0; Promyelocytes % 0; Reactive Lymphocytes 0
[2021-04-03] MEDS ORDERED: SODIUM CHL 0.9% 1000 ML BAG XX ONE (07:00)
[2021-04-03] MEDS: ALBUTEROL SULF 2.5 MG/0.5ML(0.5%) NEB SOLN NEB PRN ×2 (07:27→18:49)
[2021-04-03] MEDS: BUDESONIDE (INHALATION) 0.5 MG/2 ML NEB NEB SCH ×2 (07:27→18:49)
[2021-04-03] MEDS: ZINC SULFATE 220mg CAP or TAB PO SCH ×2 (10:00→12:44)
[2021-04-03] MEDS: ASPirin 81 mg TAB PO SCH (10:00)
[2021-04-03] MEDS: CHOLECALCIFEROL (VITD3) 2,000 UNIT CAP/TAB PO SCH ×2 (10:00→12:45)
[2021-04-03] MEDS: ASCORBIC ACID 1,000 MG TAB PO SCH ×2 (10:00→12:45)
[2021-04-03] MEDS ORDERED: ALBUMIN 25% 100 ML IV ONE (10:39)
[2021-04-03] MEDS: DexAMETHasone SOD PHOS 10MG/1ML VIAL INJ IV SCH (12:44)
[2021-04-03] MEDS: BUMETANIDE 2.5mg/10ml (0.25 mg/ml) INJ IV SCH ×2 (12:44→22:27)
[2021-04-03 13:16] LABS: Band Neutrophils % (manual) 2; Lymphocytes % (manual) 4 (10.0-50.0); Metamyelocytes % 1; Monocytes % (manual) 6 (0-12)
[2021-04-03] MEDS ORDERED: VANCOMYCIN 750mg/250ml 250 ML IV ONE (20:00)
[2021-04-03] MEDS: NOREPINEPHRINE 8 MG/250ML KIT 250 ML IV SCH ×2 (20:00→23:45)
[2021-04-03] MEDS ORDERED: TPN PER PHARMACY IV NR ×8 (20:00)
[2021-04-03] MEDS: PROPOFOL 100 ML IV SCH (21:30)
[2021-04-03] MEDS: ATORVASTATIN 20 MG TAB PO SCH (22:00)
[2021-04-03] MEDS: ENOXAPARIN SOD 40 MG/0.4 ML SYRINGE SC SCH (22:27)
[2021-04-04] VITALS (96 sets, daily range): BP systolic 84–134; BP diastolic 34–60
[2021-04-04] MEDS: PROPOFOL 100 ML IV SCH ×3 (00:40→19:52)
[2021-04-04 04:40] LABS: Basophils # (auto) 0 10 ^3/uL (0-0.2); Basophils % (auto) 0.2 % (0.0-2.0); Eosinophils # (auto) 0 10 ^3/uL (0-0.8); Eosinophils % (auto) 0.1 % (0.0-7.0); Lymphocytes # (auto) 0.3 10 ^3/uL (0.4-5.4)
[2021-04-04 04:43] LABS: Hematocrit 22.4 % (36.0-46.0); Hemoglobin 7.4 g/dL (12.2-16.2); Lymphocytes % (auto) 1.8 % (10.0-50.0); Mean Corpuscular Hemoglobin 26.2 pg (28.0-32.0); Mean Corpuscular Hgb Conc. 33.2 g/dL (32.0-36.0); Mean Corpuscular Volume 78.9 fL (80.0-100.0); Monocytes # (auto) 0.8 10 ^3/uL (0-1.3); Monocytes % (auto) 4.5 % (0.0-12.0); Neutrophils # (auto) 17.4 10 ^3/uL (1.6-8.6); Neutrophils % (auto) 93.4 % (37.0-80.0); Red Blood Cells 2.84 10^6/uL (4.0-5.20); Red Cell Distribution Width 16.3 % (11.8-14.3); White Blood Cell 18.7 10^3/uL (4.4-10.8)
[2021-04-04 05:14] LABS: Potassium 3.8 mmol/L (3.5-5.1)
[2021-04-04 05:31] LABS: Albumin 2.2 g/dL (3.4-5.0); BUN/Creatinine Ratio 32.4; Bilirubin, Total 0.9 mg/dL (0.2-1.0); Calcium 7.9 mg/dL (8.5-10.1); Magnesium 1.9 mg/dL (1.6-2.6); Phosphorus 3.5 mg/dL (2.5-4.90); Total Protein 4.9 g/dL (6.4-8.2)
[2021-04-04] MEDS: ACCU-CHEK COMFORT CURVE STRIP VI SCH ×4 (06:00→17:09)
[2021-04-04] MEDS: InsuLIN REG 1unit/0.01ml Soln (100units/ml) SC SCH ×4 (06:00→17:10)
[2021-04-04 08:37] LABS: INR 1.05 (0.9-1.15); Partial Thromboplastin Time 32.3 sec (23.6-33.0)
[2021-04-04] MEDS: BUMETANIDE 2.5mg/10ml (0.25 mg/ml) INJ IV SCH ×2 (09:22→22:23)
[2021-04-04] MEDS: FAMOTIDINE (10MG/ML) 2ML VL IV SCH (10:00)
[2021-04-04] MEDS: DexAMETHasone SOD PHOS 10MG/1ML VIAL INJ IV SCH (10:00)
[2021-04-04] MEDS: ZINC SULFATE 220mg CAP or TAB PO SCH (13:54)
[2021-04-04] MEDS: ASPirin 81 mg TAB PO SCH (13:54)
[2021-04-04] MEDS: ASCORBIC ACID 1,000 MG TAB PO SCH (13:56)
[2021-04-04] MEDS: CHOLECALCIFEROL (VITD3) 2,000 UNIT CAP/TAB PO SCH (13:56)
[2021-04-04] MEDS: MEROPENEM 500MG IVPB 50 ML IV SCH (14:01)
[2021-04-04] MEDS: ALBUTEROL SULF 2.5 MG/0.5ML(0.5%) NEB SOLN NEB PRN (18:29)
[2021-04-04] MEDS: BUDESONIDE (INHALATION) 0.5 MG/2 ML NEB NEB SCH (18:29)
[2021-04-04] MEDS ORDERED: TPN PER PHARMACY IV NR ×8 (20:00)
[2021-04-04] MEDS: ATORVASTATIN 20 MG TAB PO SCH (22:00)
[2021-04-05] VITALS (83 sets, daily range): BP systolic 85–132; BP diastolic 41–68
[2021-04-05] MEDS: ACCU-CHEK COMFORT CURVE STRIP VI SCH ×4 (00:04→17:46)
[2021-04-05] MEDS: InsuLIN REG 1unit/0.01ml Soln (100units/ml) SC SCH ×4 (00:04→17:52)
[2021-04-05 04:00] LABS: Basophils # (auto) 0.1 10 ^3/uL (0-0.2); Basophils % (auto) 0.3 % (0.0-2.0); Eosinophils # (auto) 0 10 ^3/uL (0-0.8); Hematocrit 27.1 % (36.0-46.0); Hemoglobin 9.2 g/dL (12.2-16.2); Lymphocytes # (auto) 0.3 10 ^3/uL (0.4-5.4); Lymphocytes % (auto) 1.4 % (10.0-50.0); Mean Corpuscular Hemoglobin 26.9 pg (28.0-32.0); Mean Corpuscular Hgb Conc. 33.7 g/dL (32.0-36.0); Mean Corpuscular Volume 79.8 fL (80.0-100.0); Monocytes # (auto) 1.1 10 ^3/uL (0-1.3); Neutrophils % (auto) 93.3 % (37.0-80.0); Red Cell Distribution Width 16.1 % (11.8-14.3); White Blood Cell 21.5 10^3/uL (4.4-10.8)
[2021-04-05 04:16] LABS: Albumin 2.2 g/dL (3.4-5.0); Calcium 8.4 mg/dL (8.5-10.1); Magnesium 2.1 mg/dL (1.6-2.6); Potassium 4.6 mmol/L (3.5-5.1)
[2021-04-05 04:19] LABS: Bilirubin, Total 1.3 mg/dL (0.2-1.0); Phosphorus 4.6 mg/dL (2.5-4.90); Total Protein 5.6 g/dL (6.4-8.2)
[2021-04-05] MEDS: ALBUTEROL SULF 2.5 MG/0.5ML(0.5%) NEB SOLN NEB PRN ×2 (07:15→22:39)
[2021-04-05] MEDS: BUDESONIDE (INHALATION) 0.5 MG/2 ML NEB NEB SCH ×2 (07:15→22:39)
[2021-04-05] MEDS: DexAMETHasone SOD PHOS 10MG/1ML VIAL INJ IV SCH (10:00)
[2021-04-05] MEDS: BUMETANIDE 2.5mg/10ml (0.25 mg/ml) INJ IV SCH ×2 (10:00→22:00)
[2021-04-05] MEDS: NOREPINEPHRINE 8 MG/250ML KIT 250 ML IV SCH ×2 (10:30→23:45)
[2021-04-05] MEDS: ASPirin 81 mg TAB PO SCH (11:43)
[2021-04-05] MEDS: CHOLECALCIFEROL (VITD3) 2,000 UNIT CAP/TAB PO SCH (11:43)
[2021-04-05] MEDS: ZINC SULFATE 220mg CAP or TAB PO SCH (11:43)
[2021-04-05] MEDS: ASCORBIC ACID 1,000 MG TAB PO SCH (11:43)
[2021-04-05] MEDS: MEROPENEM 500MG IVPB 50 ML IV SCH (12:03)
[2021-04-05] MEDS ORDERED: TPN PER PHARMACY IV NR ×5 (20:00)
[2021-04-05] MEDS: ATORVASTATIN 20 MG TAB PO SCH (22:00)
[2021-04-05] MEDS: PROPOFOL 100 ML IV SCH (23:45)
[2021-04-06] VITALS (74 sets, daily range): BP systolic 63–191; BP diastolic 30–81
[2021-04-06] MEDS: ACCU-CHEK COMFORT CURVE STRIP VI SCH ×4 (02:10→18:20)
[2021-04-06] MEDS: InsuLIN REG 1unit/0.01ml Soln (100units/ml) SC SCH ×4 (02:35→18:22)
[2021-04-06] MEDS: ALBUTEROL SULF 2.5 MG/0.5ML(0.5%) NEB SOLN NEB PRN (06:20)
[2021-04-06] MEDS: BUDESONIDE (INHALATION) 0.5 MG/2 ML NEB NEB SCH ×2 (06:20→22:30)
[2021-04-06 06:34] LABS: INR 0.99 (0.9-1.15)
[2021-04-06] MEDS ORDERED: SODIUM CHL 0.9% 1000 ML BAG XX ONE (07:00)
[2021-04-06] MEDS ORDERED: LIDOCAINE 1%-Mpf/Epinephrine 1:200,000 ONE (07:03)
[2021-04-06] MEDS ORDERED: HYDROmorphone HCL 2 MG/ML VL ONE (08:05)
[2021-04-06] MEDS ORDERED: fentaNYL CITRATE 100 MCG/2 ML VL ONE (08:05)
[2021-04-06] MEDS ORDERED: MIDAZOLAM HCL 2MG/2ML 2ml VIAL (1mg/ml) ONE (08:06)
[2021-04-06] MEDS ORDERED: PROPOFOL 10 MG/ML 20 ML IV ONE (08:39)
[2021-04-06] MEDS ORDERED: BUPIVACAINE 0.25% INJ 50ML VIAL ONE (08:45)
[2021-04-06] MEDS: BUMETANIDE 2.5mg/10ml (0.25 mg/ml) INJ IV SCH ×2 (10:00→21:30)
[2021-04-06] MEDS: ASCORBIC ACID 1,000 MG TAB PO SCH (10:00)
[2021-04-06] MEDS: FAMOTIDINE (10MG/ML) 2ML VL IV SCH (10:00)
[2021-04-06] MEDS: ZINC SULFATE 220mg CAP or TAB PO SCH (10:00)
[2021-04-06] MEDS: DexAMETHasone SOD PHOS 10MG/1ML VIAL INJ IV SCH (10:00)
[2021-04-06] MEDS: ASPirin 81 mg TAB PO SCH (10:00)
[2021-04-06] MEDS: CHOLECALCIFEROL (VITD3) 2,000 UNIT CAP/TAB PO SCH (10:00)
[2021-04-06] MEDS: MEROPENEM 500MG IVPB 50 ML IV SCH (10:00)
[2021-04-06 10:57] LABS: Basophils # (auto) 0.1 10 ^3/uL (0-0.2); Basophils % (auto) 0.6 % (0.0-2.0); Eosinophils # (auto) 0.1 10 ^3/uL (0-0.8); Eosinophils % (auto) 0.4 % (0.0-7.0); Hematocrit 32.8 % (36.0-46.0); Hemoglobin 11.3 g/dL (12.2-16.2); Lymphocytes # (auto) 0.4 10 ^3/uL (0.4-5.4); Lymphocytes % (auto) 2.4 % (10.0-50.0); Mean Corpuscular Hemoglobin 27.2 pg (28.0-32.0); Mean Corpuscular Hgb Conc. 34.3 g/dL (32.0-36.0); Monocytes # (auto) 0 10 ^3/uL (0-1.3); Monocytes % (auto) 0.1 % (0.0-12.0); Neutrophils # (auto) 17.5 10 ^3/uL (1.6-8.6); Neutrophils % (auto) 96.5 % (37.0-80.0); Nucleated Red Blood Cells % 0.1 %; Red Blood Cells 4.15 10^6/uL (4.0-5.20); Red Cell Distribution Width 16.2 % (11.8-14.3); White Blood Cell 18.2 10^3/uL (4.4-10.8)
[2021-04-06] MEDS ORDERED: ALBUMIN 25% 200 ML IV ONE (11:26)
[2021-04-06] MEDS: NOREPINEPHRINE 8 MG/250ML KIT 250 ML IV SCH ×2 (11:30→23:45)
[2021-04-06 11:39] LABS: Albumin 2.7 g/dL (3.4-5.0); BUN/Creatinine Ratio 35.3; Bilirubin, Total 1.6 mg/dL (0.2-1.0); Calcium 7.8 mg/dL (8.5-10.1); Phosphorus 1.8 mg/dL (2.5-4.90)
[2021-04-06 11:50] LABS: Mean Corpuscular Volume 79.2 fL (80.0-100.0)
[2021-04-06] MEDS: ALBUMIN 25% 100 ML IV SCH ×2 (12:00→13:00)
[2021-04-06] MEDS ORDERED: POTASSIUM PHOSPHATE 22 MEQ in SODIUM CHL 0.9% 100 ML IV ONE (14:00)
[2021-04-06] MEDS ORDERED: VANCOMYCIN 500 MG in D5W 5% 100 ML IV ONE ×2 (16:00→20:00)
[2021-04-06] MEDS ORDERED: TPN PER PHARMACY IV NR ×7 (20:00)
[2021-04-06] MEDS ORDERED: EPOETIN ALFA-EPBX 4,000 UNIT/ML VIAL SC ONE (21:00)
[2021-04-06] MEDS: ATORVASTATIN 20 MG TAB PO SCH (22:00)
[2021-04-06] MEDS: MEROPENEM 1GM IVPB 100 ML IV SCH (23:12)
[2021-04-06] MEDS: PROPOFOL 100 ML IV SCH (23:45)
[2021-04-07] VITALS (87 sets, daily range): BP systolic 80–128; BP diastolic 41–63
[2021-04-07 04:42] LABS: Basophils # (auto) 0.1 10 ^3/uL (0-0.2); Eosinophils # (auto) 0.1 10 ^3/uL (0-0.8); Hematocrit 22.6 % (36.0-46.0); Hemoglobin 7.6 g/dL (12.2-16.2); Lymphocytes # (auto) 0.3 10 ^3/uL (0.4-5.4); Mean Corpuscular Hemoglobin 26.6 pg (28.0-32.0); Mean Corpuscular Hgb Conc. 33.5 g/dL (32.0-36.0); Monocytes # (auto) 0.4 10 ^3/uL (0-1.3)
[2021-04-07 04:48] LABS: Basophils % (auto) 0.7 % (0.0-2.0); Eosinophils % (auto) 0.7 % (0.0-7.0); Lymphocytes % (auto) 1.8 % (10.0-50.0); Mean Corpuscular Volume 79.3 fL (80.0-100.0); Monocytes % (auto) 2.2 % (0.0-12.0); Neutrophils # (auto) 16.8 10 ^3/uL (1.6-8.6); Neutrophils % (auto) 94.6 % (37.0-80.0); Nucleated Red Blood Cells % 0.1 %; Red Blood Cells 2.85 10^6/uL (4.0-5.20); White Blood Cell 17.8 10^3/uL (4.4-10.8)
[2021-04-07 05:01] LABS: Albumin 2.5 g/dL (3.4-5.0); Calcium 8.4 mg/dL (8.5-10.1); Potassium 5.1 mmol/L (3.5-5.1)
[2021-04-07 05:03] LABS: Magnesium 1.9 mg/dL (1.6-2.6)
[2021-04-07 05:10] LABS: Bilirubin, Total 2.1 mg/dL (0.2-1.0); Phosphorus 6.9 mg/dL (2.5-4.90)
[2021-04-07] MEDS: InsuLIN REG 1unit/0.01ml Soln (100units/ml) SC SCH ×4 (06:00→18:07)
[2021-04-07] MEDS: BUDESONIDE (INHALATION) 0.5 MG/2 ML NEB NEB SCH ×2 (06:00→22:23)
[2021-04-07] MEDS: ACCU-CHEK COMFORT CURVE STRIP VI SCH ×4 (06:00→18:05)
[2021-04-07] MEDS: ALBUTEROL SULF 2.5 MG/0.5ML(0.5%) NEB SOLN NEB PRN ×2 (06:00→22:23)
[2021-04-07] MEDS ORDERED: fentaNYL Drip 2500mCg/250mlNS 250 ML IV ONE (07:24)
[2021-04-07] MEDS: fentaNYL Drip 2500mCg/250mlNS 250 ML IV SCH (07:30)
[2021-04-07] MEDS: NOREPINEPHRINE 8 MG/250ML KIT 250 ML IV SCH (08:15)
[2021-04-07] MEDS: MEROPENEM 1GM IVPB 100 ML IV SCH (09:28)
[2021-04-07] MEDS: DexAMETHasone SOD PHOS 10MG/1ML VIAL INJ IV SCH (09:29)
[2021-04-07] MEDS: BUMETANIDE 2.5mg/10ml (0.25 mg/ml) INJ IV SCH ×2 (09:29→22:00)
[2021-04-07] MEDS: ZINC SULFATE 220mg CAP or TAB PO SCH (10:00)
[2021-04-07] MEDS: ASCORBIC ACID 1,000 MG TAB PO SCH (10:00)
[2021-04-07] MEDS: ASPirin 81 mg TAB PO SCH (10:00)
[2021-04-07] MEDS: CHOLECALCIFEROL (VITD3) 2,000 UNIT CAP/TAB PO SCH (10:00)
[2021-04-07] MEDS: PROPOFOL 100 ML IV SCH (13:00)
[2021-04-07] MEDS ORDERED: TPN PER PHARMACY IV NR ×6 (20:00)
[2021-04-07] MEDS: ATORVASTATIN 20 MG TAB PO SCH (22:00)
[2021-04-08] VITALS (68 sets, daily range): BP systolic 58–159; BP diastolic 32–96
[2021-04-08] MEDS: InsuLIN REG 1unit/0.01ml Soln (100units/ml) SC SCH ×5 (00:26→23:46)
[2021-04-08] MEDS: ACCU-CHEK COMFORT CURVE STRIP VI SCH ×5 (00:26→23:45)
[2021-04-08 04:54] LABS: Hematocrit 24.4 % (36.0-46.0); Hemoglobin 7.9 g/dL (12.2-16.2); Mean Corpuscular Hemoglobin 26.3 pg (28.0-32.0); Mean Corpuscular Hgb Conc. 32.4 g/dL (32.0-36.0); Mean Corpuscular Volume 81.1 fL (80.0-100.0); Red Blood Cells 3.01 10^6/uL (4.0-5.20); Red Cell Distribution Width 16.6 % (11.8-14.3)
[2021-04-08 05:15] LABS: Albumin 2.4 g/dL (3.4-5.0); Calcium 8.5 mg/dL (8.5-10.1); Magnesium 2.8 mg/dL (1.6-2.6)
[2021-04-08 05:20] LABS: INR 1.07 (0.9-1.15)
[2021-04-08 05:26] LABS: Bilirubin, Total 2.6 mg/dL (0.2-1.0); Total Protein 5.6 g/dL (6.4-8.2)
[2021-04-08 06:09] LABS: BUN/Creatinine Ratio 43.2; Phosphorus 8.6 mg/dL (2.5-4.90); Potassium 6.1 mmol/L (3.5-5.1)
[2021-04-08 06:10] LABS: White Blood Cell 34.9 10^3/uL (4.4-10.8)
[2021-04-08 06:12] LABS: Basophils % (manual) 0 (0.0-2.0); Blast Cells 0; Eosinophils % (manual) 0 (0-7); Metamyelocytes % 0; Promyelocytes % 0; Reactive Lymphocytes 0
[2021-04-08] MEDS: PROPOFOL 100 ML IV SCH (07:00)
[2021-04-08 07:09] LABS: Band Neutrophils % (manual) 5; Lymphocytes % (manual) 1 (10.0-50.0); Monocytes % (manual) 3 (0-12); Myelocytes % 2
[2021-04-08] MEDS: fentaNYL Drip 2500mCg/250mlNS 250 ML IV SCH (07:30)
[2021-04-08] MEDS ORDERED: BENZOCAINE (DENTAL) 20 % SPRAY 60ML MT ONE (09:18)
[2021-04-08] MEDS ORDERED: EPINEPHrine HCL 1 MG/1 ML AMP ONE (09:18)
[2021-04-08] MEDS ORDERED: LIDOCAINE 2%HCL (LOCAL ANESTH.) INJ 20ML MDV ONE (09:18)
[2021-04-08] MEDS ORDERED: MIDAZOLAM HCL 5 MG/ML-1ML VIAL ONE (09:19)
[2021-04-08] MEDS ORDERED: fentaNYL CITRATE 100 MCG/2 ML VL ONE (09:19)
[2021-04-08] MEDS ORDERED: LIDOCAINE HCL 2% TOP JELLY 5ML TOP ONE (09:19)
[2021-04-08] MEDS: BUMETANIDE 2.5mg/10ml (0.25 mg/ml) INJ IV SCH ×2 (09:47→22:00)
[2021-04-08] MEDS: MEROPENEM 500MG IVPB 50 ML IV SCH (09:48)
[2021-04-08] MEDS: DexAMETHasone SOD PHOS 10MG/1ML VIAL INJ IV SCH (09:48)
[2021-04-08] MEDS: ASPirin 81 mg TAB PO SCH (09:49)
[2021-04-08] MEDS: FAMOTIDINE (10MG/ML) 2ML VL IV SCH (09:49)
[2021-04-08] MEDS: ASCORBIC ACID 1,000 MG TAB PO SCH (09:50)
[2021-04-08] MEDS: ZINC SULFATE 220mg CAP or TAB PO SCH (09:50)
[2021-04-08] MEDS: CHOLECALCIFEROL (VITD3) 2,000 UNIT CAP/TAB PO SCH (09:50)
[2021-04-08] MEDS: NOREPINEPHRINE 8 MG/250ML KIT 250 ML IV SCH (10:00)
[2021-04-08] MEDS: BUDESONIDE (INHALATION) 0.5 MG/2 ML NEB NEB SCH ×2 (10:20→21:57)
[2021-04-08] MEDS: ALBUTEROL SULF 2.5 MG/0.5ML(0.5%) NEB SOLN NEB PRN ×4 (10:20→21:57)
[2021-04-08] MEDS ORDERED: PHENYLEPHRINE IV 250 ML IV SCH (14:30)
[2021-04-08] MEDS ORDERED: TPN PER PHARMACY IV NR ×5 (20:00)
[2021-04-08] MEDS: ATORVASTATIN 20 MG TAB PO SCH (22:00)
[2021-04-09] VITALS (87 sets, daily range): BP systolic 94–141; BP diastolic 42–74
[2021-04-09 05:25] LABS: Albumin 2.3 g/dL (3.4-5.0); Calcium 8.5 mg/dL (8.5-10.1); Magnesium 2.4 mg/dL (1.6-2.6); Potassium 5.3 mmol/L (3.5-5.1)
[2021-04-09 05:33] LABS: Bilirubin, Total 2.9 mg/dL (0.2-1.0); Phosphorus 7.5 mg/dL (2.5-4.90); Total Protein 5.4 g/dL (6.4-8.2)
[2021-04-09] MEDS: ACCU-CHEK COMFORT CURVE STRIP VI SCH ×4 (05:50→23:56)
[2021-04-09] MEDS: InsuLIN REG 1unit/0.01ml Soln (100units/ml) SC SCH ×4 (05:52→23:56)
[2021-04-09 06:03] LABS: BUN/Creatinine Ratio 43.8
[2021-04-09] MEDS: fentaNYL Drip 2500mCg/250mlNS 250 ML IV SCH ×2 (07:30→23:57)
[2021-04-09] MEDS: NOREPINEPHRINE 8 MG/250ML KIT 250 ML IV SCH (09:00)
[2021-04-09] MEDS: CHOLECALCIFEROL (VITD3) 2,000 UNIT CAP/TAB PO SCH (10:00)
[2021-04-09] MEDS: ASPirin 81 mg TAB PO SCH (10:00)
[2021-04-09] MEDS: ZINC SULFATE 220mg CAP or TAB PO SCH (10:00)
[2021-04-09] MEDS: ASCORBIC ACID 1,000 MG TAB PO SCH (10:00)
[2021-04-09] MEDS: MEROPENEM 500MG IVPB 50 ML IV SCH (10:11)
[2021-04-09] MEDS: DexAMETHasone SOD PHOS 10MG/1ML VIAL INJ IV SCH (10:11)
[2021-04-09] MEDS: BUMETANIDE 2.5mg/10ml (0.25 mg/ml) INJ IV SCH ×2 (10:11→22:11)
[2021-04-09] MEDS: PROPOFOL 100 ML IV SCH ×2 (12:00→23:59)
[2021-04-09] MEDS: BUDESONIDE (INHALATION) 0.5 MG/2 ML NEB NEB SCH ×2 (15:03→22:30)
[2021-04-09] MEDS: ALBUTEROL SULF 2.5 MG/0.5ML(0.5%) NEB SOLN NEB PRN ×3 (15:03→22:30)
[2021-04-09] MEDS ORDERED: VANCOMYCIN 750mg/250ml 250 ML IV ONE (17:00)
[2021-04-09] MEDS ORDERED: TPN PER PHARMACY IV NR ×5 (20:00)
[2021-04-09] MEDS: ATORVASTATIN 20 MG TAB PO SCH (22:00)
[2021-04-10] VITALS (90 sets, daily range): BP systolic 82–143; BP diastolic 38–64
[2021-04-10] MEDS: fentaNYL Drip 2500mCg/250mlNS 250 ML IV SCH ×2 (04:16→23:42)
[2021-04-10 04:59] LABS: Potassium 5.5 mmol/L (3.5-5.1)
[2021-04-10 05:06] LABS: Albumin 2.2 g/dL (3.4-5.0); Calcium 8.4 mg/dL (8.5-10.1); Magnesium 2.5 mg/dL (1.6-2.6)
[2021-04-10 05:07] LABS: Bilirubin, Total 3.8 mg/dL (0.2-1.0); Phosphorus 8.3 mg/dL (2.5-4.90); Total Protein 5.5 g/dL (6.4-8.2)
[2021-04-10] MEDS: InsuLIN REG 1unit/0.01ml Soln (100units/ml) SC SCH ×4 (05:34→23:42)
[2021-04-10] MEDS: ACCU-CHEK COMFORT CURVE STRIP VI SCH ×4 (05:35→23:43)
[2021-04-10] MEDS ORDERED: NOREPINEPHRINE BITARTRATE 1 ML IV ONE (05:58)
[2021-04-10] MEDS: ALBUTEROL SULF 2.5 MG/0.5ML(0.5%) NEB SOLN NEB PRN (06:38)
[2021-04-10] MEDS: BUDESONIDE (INHALATION) 0.5 MG/2 ML NEB NEB SCH ×2 (06:38→18:59)
[2021-04-10] MEDS: NOREPINEPHRINE 8 MG/250ML KIT 250 ML IV SCH ×4 (06:52→23:45)
[2021-04-10] MEDS: PHENYLEPHRINE IV 250 ML IV SCH ×2 (08:30→15:45)
[2021-04-10] MEDS: BUMETANIDE 2.5mg/10ml (0.25 mg/ml) INJ IV SCH ×2 (09:33→22:14)
[2021-04-10] MEDS: DexAMETHasone SOD PHOS 10MG/1ML VIAL INJ IV SCH (09:34)
[2021-04-10] MEDS: ASPirin 81 mg TAB PO SCH (09:34)
[2021-04-10] MEDS: FAMOTIDINE (10MG/ML) 2ML VL IV SCH (09:34)
[2021-04-10] MEDS: ASCORBIC ACID 1,000 MG TAB PO SCH (09:35)
[2021-04-10] MEDS: ZINC SULFATE 220mg CAP or TAB PO SCH (09:35)
[2021-04-10] MEDS: CHOLECALCIFEROL (VITD3) 2,000 UNIT CAP/TAB PO SCH (09:35)
[2021-04-10] MEDS: MEROPENEM 500MG IVPB 50 ML IV SCH (10:07)
[2021-04-10] MEDS: PROPOFOL 100 ML IV SCH ×2 (13:28→22:16)
[2021-04-10] MEDS ORDERED: TPN PER PHARMACY IV NR ×6 (20:00)
[2021-04-10] MEDS: ATORVASTATIN 20 MG TAB PO SCH (22:00)
[2021-04-11] VITALS (51 sets, daily range): BP systolic 69–132; BP diastolic 10–64
[2021-04-11] MEDS: PHENYLEPHRINE IV 250 ML IV SCH ×5 (01:10→18:25)
[2021-04-11] MEDS: NOREPINEPHRINE 8 MG/250ML KIT 250 ML IV SCH ×3 (04:56→14:30)
[2021-04-11] MEDS: PROPOFOL 100 ML IV SCH ×2 (04:56→11:51)
[2021-04-11] MEDS: ACCU-CHEK COMFORT CURVE STRIP VI SCH ×3 (05:50→18:00)
[2021-04-11] MEDS: InsuLIN REG 1unit/0.01ml Soln (100units/ml) SC SCH ×3 (05:50→18:00)
[2021-04-11] MEDS: ALBUTEROL SULF 2.5 MG/0.5ML(0.5%) NEB SOLN NEB PRN ×3 (09:04→19:05)
[2021-04-11] MEDS: BUDESONIDE (INHALATION) 0.5 MG/2 ML NEB NEB SCH ×2 (09:05→19:05)
[2021-04-11] MEDS: BUMETANIDE 2.5mg/10ml (0.25 mg/ml) INJ IV SCH (09:29)
[2021-04-11] MEDS: DexAMETHasone SOD PHOS 10MG/1ML VIAL INJ IV SCH (09:53)
[2021-04-11] MEDS: ASPirin 81 mg TAB PO SCH (09:54)
[2021-04-11] MEDS: CHOLECALCIFEROL (VITD3) 2,000 UNIT CAP/TAB PO SCH (09:54)
[2021-04-11] MEDS: ASCORBIC ACID 1,000 MG TAB PO SCH (09:54)
[2021-04-11] MEDS: ZINC SULFATE 220mg CAP or TAB PO SCH (09:54)
[2021-04-11] MEDS: MEROPENEM 500MG IVPB 50 ML IV SCH (10:00)
[2021-04-11 12:53] LABS: Sodium 135 mmol/L (136-145)
[2021-04-11 12:54] LABS: Alanine Aminotransferase 231 U/L (13-56); Albumin 2.1 g/dL (3.4-5.0); Alkaline Phosphatase 128 U/L (45-117); Anion Gap 17 (5-15); Aspartate Aminotransferase 625 U/L (15-37); BUN/Creatinine Ratio 44.4; Bilirubin, Total 4.8 mg/dL (0.2-1.0); Calcium 8.2 mg/dL (8.5-10.1); Carbon Dioxide 17 mmol/L (21-32); Chloride 101 mmol/L (98-107); GFR African American 11 mL/min; GFR Non-African American 9 mL/min; Glucose 162 mg/dL (74-106); Phosphorus 8.6 mg/dL (2.5-4.90); Total Protein 5.4 g/dL (6.4-8.2)
[2021-04-11 12:56] LABS: Blood Urea Nitrogen 221 mg/dL (7-18); Potassium 6.1 mmol/L (3.5-5.1)
[2021-04-11] MEDS ORDERED: SODIUM CHL 0.9% 1000 ML BAG XX ONE (14:00)
[2021-04-11] MEDS ORDERED: SODIUM ZIRCONIUM CYCL 10 GM PAK PO ONE (15:30)
[2021-04-11] MEDS ORDERED: TPN PER PHARMACY IV NR ×6 (20:00)
== END 2021-04-11 21:04 | DRG 4 ==
LOC: EDBD 11:12 → ER 11:12 → TELE 21:39 → ICU WEST 03-24 22:59
PROVIDERS: ADMIT Hospitalist; ATTEND Internal Medicine Geriatric Medicine
PROC: XW033E5 Introduction of Remdesivir Anti-infective into Peripheral Vein, Percutaneous Approach, New Technology Group 5 (ICD-10-PCS; 2021-03-19)
PROC: 5A09357 Assistance with Respiratory Ventilation, Less than 24 Consecutive Hours, Continuous Positive Airway Pressure (ICD-10-PCS; 2021-03-20)
PROC: 06HM33Z Insertion of Infusion Device into Right Femoral Vein, Percutaneous Approach (ICD-10-PCS; 2021-03-20)
PROC: 5A1955Z Respiratory Ventilation, Greater than 96 Consecutive Hours (ICD-10-PCS; 2021-03-21)
PROC: 0BH17EZ Insertion of Endotracheal Airway into Trachea, Via Natural or Artificial Opening (ICD-10-PCS; 2021-03-21)
PROC: 06HN33Z Insertion of Infusion Device into Left Femoral Vein, Percutaneous Approach (ICD-10-PCS; 2021-03-23)
PROC: 5A1D70Z Performance of Urinary Filtration, Intermittent, Less than 6 Hours Per Day (ICD-10-PCS; 2021-03-23)
PROC: 5A1D70Z Performance of Urinary Filtration, Intermittent, Less than 6 Hours Per Day (ICD-10-PCS; 2021-03-25)
PROC: 5A1D70Z Performance of Urinary Filtration, Intermittent, Less than 6 Hours Per Day (ICD-10-PCS; 2021-03-27)
PROC: 5A1D70Z Performance of Urinary Filtration, Intermittent, Less than 6 Hours Per Day (ICD-10-PCS; 2021-03-30)
PROC: 5A1D70Z Performance of Urinary Filtration, Intermittent, Less than 6 Hours Per Day (ICD-10-PCS; 2021-04-01)
PROC: 5A1D70Z Performance of Urinary Filtration, Intermittent, Less than 6 Hours Per Day (ICD-10-PCS; 2021-04-03)
PROC: 5A1D70Z Performance of Urinary Filtration, Intermittent, Less than 6 Hours Per Day (ICD-10-PCS; 2021-04-06)
PROC: 0B110F4 Bypass Trachea to Cutaneous with Tracheostomy Device, Open Approach (ICD-10-PCS; principal; 2021-04-06 08:15)
PROC: 5A1D70Z Performance of Urinary Filtration, Intermittent, Less than 6 Hours Per Day (ICD-10-PCS; 2021-04-08)
DX: A41.9 Sepsis, unspecified organism (principal); E11.10 Type 2 diabetes mellitus with ketoacidosis without coma; U07.1 COVID-19; N17.0 Acute kidney failure with tubular necrosis; J96.01 Acute respiratory failure with hypoxia; J12.82 Pneumonia due to coronavirus disease 2019; I21.4 Non-ST elevation (NSTEMI) myocardial infarction; E43 Unspecified severe protein-calorie malnutrition; R65.21 Severe sepsis with septic shock; J90 Pleural effusion, not elsewhere classified; J44.1 Chronic obstructive pulmonary disease with (acute) exacerbation; J98.11 Atelectasis; E87.1 Hypo-osmolality and hyponatremia; I48.92 Unspecified atrial flutter; J44.0 Chronic obstructive pulmonary disease with (acute) lower respiratory infection; Z99.11 Dependence on respirator [ventilator] status; E87.0 Hyperosmolality and hypernatremia; Z66 Do not resuscitate; N18.32 Chronic kidney disease, stage 3b; E11.22 Type 2 diabetes mellitus with diabetic chronic kidney disease; E11.40 Type 2 diabetes mellitus with diabetic neuropathy, unspecified; R74.01 Elevation of levels of liver transaminase levels; R74.8 Abnormal levels of other serum enzymes; E78.5 Hyperlipidemia, unspecified; I12.9 Hypertensive chronic kidney disease with stage 1 through stage 4 chronic kidney disease, or unspecified chronic kidney disease; I27.20 Pulmonary hypertension, unspecified; I48.91 Unspecified atrial fibrillation; D64.9 Anemia, unspecified; E87.5 Hyperkalemia; E87.6 Hypokalemia; Z85.3 Personal history of malignant neoplasm of breast; Z79.01 Long term (current) use of anticoagulants; Z79.4 Long term (current) use of insulin; Z99.2 Dependence on renal dialysis; Z51.5 Encounter for palliative care; Z23 Encounter for immunization; Z68.26 Body mass index [BMI] 26.0-26.9, adult
CPT/HCPCS: 36415; 36600; 71045; 76705; 80048; 80053; 80061; 80074; 80202; 81003; 82040; 82306; 82570; 82728; 82805; 82962; 83036; 83605; 83615; 83735; 83880; 84100; 84156; 84443; 84478; 84484; 85007; 85025; 85027; 85379; 85610; 85730; 86141; 87040; 87070; 87081; 87205; 87426; 90935; 93005; 93306; 93970; 94002; 94003; 94640; 94660; 96361; 96374; 96375; 99291; G0378; J0171; J0330; J1100; J1642; J1815; J2185; J2250; J2704; J3490; J7060; J7131; P9047